=== PATIENT | male | born 1940 | race Caucasian/White ===

== ENCOUNTER 2017-11-04 20:50 | Outpatient (CLI) | payer MEDICARE ==
[~2017-11-04 20:50] MED LIST: CETI10TA20 PO; DICL50TA4 PO; HYDR-707 PO; HYDR12.5 PO; IBP800T PO; IRBE300T18 PO; IRBE300T9 PO; LEVO1CAP11 PO; MECL25TA3 PO; MONT10TA24 PO; NF-METANX PO; SCOP1PAT11 TD; TRM50T PO
== END 2017-11-05 06:24 | disposition home or self-care (01) ==
LOC: SLEEP 20:50
PROVIDERS: ATTEND Nurse Practitioner Family
DX: G47.33 Obstructive sleep apnea (adult) (pediatric) (principal); G47.61 Periodic limb movement disorder; Z91.19 Patient's noncompliance with other medical treatment and regimen
CPT/HCPCS: 95811

== ENCOUNTER → 2018-12-13 | Outpatient (CLI) | payer MEDICARE ==
[2018-12-13 14:33] LABS: ALANINE AMINOTRANSFERASE 8 U/L (0-55); ALBUMIN 3.8 GM/DL (3.2-4.5); ALKALINE PHOSPHATASE 76 U/L (40-136); BILIRUBIN,TOTAL 0.4 MG/DL (0.1-1.0); BUN/CREATININE RATIO 16; CALCIUM 9.3 MG/DL (8.5-10.1); CARBON DIOXIDE 30 MMOL/L (21-32); CHLORIDE 107 MMOL/L (98-107); CHOLESTEROL 149 MG/DL (< 200); CREATININE SERUM 0.86 MG/DL (0.60-1.30); GFR ESTIMATED > 60; GLUCOSE 87 MG/DL (70-105); HDL CHOLESTEROL 39 MG/DL (40-60); POTASSIUM 4.4 MMOL/L (3.6-5.0); SODIUM 138 MMOL/L (135-145); TOTAL PROTEIN 6.9 GM/DL (6.4-8.2); TRIGLYCERIDES 93 MG/DL (<150); VLDL CHOLESTEROL 19 MG/DL (5-40)
== END ==
LOC: LAB 14:01
PROVIDERS: ATTEND Internal Medicine Cardiovascular Disease
DX: I10 Essential (primary) hypertension (principal); I73.9 Peripheral vascular disease, unspecified; R06.09 Other forms of dyspnea; R07.9 Chest pain, unspecified
CPT/HCPCS: 36415; 80053; 80061; 93306

== ENCOUNTER → 2018-12-17 | Outpatient (CLI) | payer MEDICARE ==
[~2018-12-17] MED LIST changes: +CATHETER FLUSH 10 ML SYR IV PRN; +REGADENOSON 0.4 MG/5 ML SYR (LEXISCAN) IV ONE
[2018-12-17 09:03] VITALS: BP 128/71
[2018-12-17 09:11] VITALS: BP 128/71
[2018-12-17 09:12] VITALS: BP 144/68
--- NOTE | 2018-12-18 09:17 | STRESS TEST ---
DATE OF SERVICE: 12/17/2018 LEXISCAN MYOVIEW STRESS TEST REPORT REFERRING PHYSICIAN: Dr. Baez. Baseline heart rate is 42. Baseline blood pressure 129/70. Baseline EKG is sinus rhythm with no ischemic changes. In summary, the patient was injected with 10.88 mCi of technetium-99 Myoview and the resting images were obtained. Then, the patient started exercising with a baseline heart rate, blood pressure and EKG mentioned above. At minutes 2 and 50 seconds heart rate was 77. The patient was unable to perform any further. Test was terminated and converted to Lexiscan Myoview stress test. The patient received 0.4 mg of Lexiscan followed by 29.9 mCi of technetium-99 Myoview. Throughout the test, there were no EKG changes. The resting and stress images were reviewed and compared in the short axis, horizontal long axis, and vertical long axis views. Review of the images showed diaphragmatic attenuation with fixed defect involving the mid to apical inferior wall and inferolateral wall. SSS is 9, SDS 0. TID value 0.9. On the gated images, the left ventricle appeared to be in normal size. Inferior wall is luis normally. Calculated ejection fraction 65%. CONCLUSION: 1. Baseline sinus bradycardia and inability to exercise beyond 3 minutes with maximum heart rate 77 beats per minute. 2. Test was converted to Lexiscan and the patient tolerated Lexiscan well. 3. Diaphragmatic attenuation with fixed defect at the mid to apical inferior wall and inferolateral wall with no significant ischemia. 4. Normal left ventricular size with normal contractility. Inferior wall is luis normally. Calculated ejection fraction is 65%. Job ID: [id number] DocumentID: [id number] Dictated Date: 12/18/2018 07:45:21 Pattern Clerk Date: 12/18/2018 09:16:10 Dictated By: HELGA SANABRIA MD
== END ==
LOC: CARD 07:14
PROVIDERS: ATTEND Internal Medicine Cardiovascular Disease
DX: I25.10 Atherosclerotic heart disease of native coronary artery without angina pectoris (principal); I10 Essential (primary) hypertension; I73.9 Peripheral vascular disease, unspecified; R00.1 Bradycardia, unspecified
CPT/HCPCS: 78452; 93017

== ENCOUNTER 2019-01-09 06:49 | Day surgery (SDC) | payer MEDICARE ==
[~2019-01-09] VITALS: Ht 183 cm; Wt 99.0 kg
[2019-01-09] VITALS (10 sets, daily range): BP systolic 122–149; BP diastolic 72–88
[~2019-01-09 06:49] MED LIST changes: -CATHETER FLUSH 10 ML SYR IV PRN; -REGADENOSON 0.4 MG/5 ML SYR (LEXISCAN) IV ONE
[2019-01-09] MEDS ORDERED: LIDOCAINE 1% INJ 20 ML 20 ML VIAL ONE (06:58)
[2019-01-09] MEDS ORDERED: HEParin (CATH LAB) 2,000 ML IV ONE (06:58)
[2019-01-09] MEDS ORDERED: NS IV 1000 ML 1,000 ML ONE (06:58)
[2019-01-09] MEDS ORDERED: NS IV 1000 ML 1,000 ML IV SCH (07:00)
[2019-01-09 07:28] LABS: HEMOGLOBIN 14.2 G/DL (13.3-17.7); MEAN PLATELET VOLUME 10.7 FL (7.4-10.4); RED CELL DISTRIBUTION WIDTH 14.2 % (10.0-14.5); WHITE BLOOD COUNT 9.2 10^3/uL (4.3-11.0)
[2019-01-09] MEDS ORDERED: HYDR25TA4 PO (07:40)
[2019-01-09] MEDS ORDERED: C,E,1CAP PO (07:40)
[2019-01-09] MEDS ORDERED: IRBE300T18 PO (07:40)
[2019-01-09] MEDS ORDERED: TURM500C7 PO (07:40)
[2019-01-09] MEDS ORDERED: [UNRECOGNIZED DRUG - OTHER] PO (07:40)
[2019-01-09 07:46] LABS: PROTHROMBIN TIME PATIENT 13.9 SEC (12.2-14.7)
[2019-01-09] MEDS ORDERED: FLUT9.9S NS (07:47)
[2019-01-09] MEDS ORDERED: SODI30SP2 NS (07:47)
[2019-01-09] MEDS ORDERED: ASPI-983 PO (07:47)
[2019-01-09 07:54] LABS: ALANINE AMINOTRANSFERASE 11 U/L (0-55); ALBUMIN 4.1 GM/DL (3.2-4.5); ALKALINE PHOSPHATASE 82 U/L (40-136); BILIRUBIN,TOTAL 0.6 MG/DL (0.1-1.0); BUN/CREATININE RATIO 14; CALCIUM 9.7 MG/DL (8.5-10.1); CARBON DIOXIDE 26 MMOL/L (21-32); CHLORIDE 106 MMOL/L (98-107); CREATININE SERUM 0.86 MG/DL (0.60-1.30); GFR ESTIMATED > 60; GLUCOSE 85 MG/DL (70-105); POTASSIUM 3.9 MMOL/L (3.6-5.0); SODIUM 139 MMOL/L (135-145); TOTAL PROTEIN 7.3 GM/DL (6.4-8.2)
--- NOTE | 2019-01-09 07:55 | NUR ---
SPOKE WITH THE PT (HAS HIS BOTTLES) TO COMPLETE THE MED REC. PT WAS ABLE TO TELL HE HOW/WHEN HE TAKES ALL HIS HOME MEDS. THE FOLLOWING ARE FILL DATES LISTED ON HIS BOTTLES: 04-05-2018 HCTZ #30/30DS (PT INDICATES HE ONLY TAKES THIS PRN) 10-16-2018 IRBESARTAN #90/90DS 12-31-2018 CETIRIZINE #30/30DS OTC MEDS: FLONASE: UD PRN SALINE NASAL SPRAY: UD PRN ASPIRIN 81M DAILY OCUVITE: 1 DAILY VITACELL: 1 DAILY TURMERIC: 1 DAILY
--- NOTE | 2019-01-09 08:20 | Diagnostic Imaging Report ---
INDICATION: CHEST PAIN,SOB,HTN COMPARISON: 11/08/2015 FINDINGS: Single frontal view of the chest demonstrates normal heart size and pulmonary vascularity. The lungs show minimal left basilar atelectasis, but otherwise clear. No large pleural effusion or pneumothorax is seen. The visualized osseous structures show no acute abnormalities. IMPRESSION: 1. Minimal left basilar atelectasis. Dictated by: Dictated on workstation # [id number]
[2019-01-09] MEDS ORDERED: MIDAZOLAM 5 MG/5 ML (VERSED) VIAL ONE (09:04)
[2019-01-09] MEDS ORDERED: fentaNYL INJECTION 100 MCG/2 ML AMP ONE (09:04)
[2019-01-09] MEDS ORDERED: VERAPAMIL 5 MG/2 ML (CALAN) VIAL IV ONE (09:22)
[2019-01-09] MEDS ORDERED: NITRO DRIP 25000 MCG/D5W 250 ML IV ONE (09:22)
[2019-01-09] MEDS ORDERED: HEParin 1000 UNIT/ML (10ML VIAL) FOR BOLUS ONE (09:22)
--- NOTE | 2019-01-09 09:55 | Cardiac Procedure Note-CS/ASA ---
Pre-Procedure Note Pre-Op Procedure Note H&P Reviewed The H&P was reviewed, patient examined and no changes noted. Date H&P Reviewed: Jan 09, 2019 Time H&P Reviewed: 09:55 Conscious Sedation Pre-Proced Time 09:55 ASA Score 3 For ASA 3 and 4: Consider anesthesia and medical clearance. Also, for patients with a history of failed moderate sedation consider anesthesia. Airway Lungs Heart ASA score ASA 1: a normal healthy patient ASA 2: a patient with a mild systemic disease (mid diabetes, controlled hypertension, obesity x ASA 3: a patient with a severe systemic disease that limits activity (angina, COPD, prior Myocardial infarction) ASA 4: a patient with an incapacitating disease that is a constant threat to life (CHF, renal failure) ASA 5: a moribund patient not expected to survive 24 hrs. (ruptured aneurysm) ASA 6: a declared brain- patient whose organs are being harvested. For emergent operations, add the letter E after the classification Mallampati Classification Grade 3 Sedation Plan Analgesia, Amnesia, Plan communicated to team members, Discussed options with patient/fam, Discussed risks with patient/fam The patient is an appropriate candidate to undergo the planned procedure, sedation, and anesthesia. The patient immediately re-assessed prior to indication. HELGA SANABRIA MD Jan 09, 2019 09:55
[2019-01-09] MEDS ORDERED: ATOR10TA PO (09:57)
--- NOTE | 2019-01-09 09:57 | Discharge Inst-Post CATH ---
Discharge Inst-CATH/EP Problems Reviewed?: Yes Post Cardiac Cath/EP D/C Inst Follow Up/Plan Appointment with Dr. Garza's office in 2-4 weeks <b>CARDIAC CATH/EP PROCEDURE DISCHARGE INSTRUCTIONS</b> ACTIVITY * Go Home directly and rest. * Limit activity of the leg (or wrist if it was used) for 7 days including aerobics, swimming, jogging, bicycling, etc. * Restrict stair-climbing for 7 days if possible, if not, climb up with your non-cath leg, then bring together on the same step. * Avoid lifting, pushing, pulling or excessive movement of the affected extremity for 7 days. * Customary sexual activity may be resumed after 2 days-use caution not to use a position that strains or causes pain to the affected extremity. * No driving for 24 hours. * NO SMOKING. * Avoid straining for bowel movements for 7 days. * Gentle walking on level ground is allowed. * Returning to work will depend on the type of procedure and the results. Your doctor will discuss this with you. CALL YOUR DOCTOR FOR ANY OF THE FOLLOWING: *If bleeding from the puncture site occurs- Apply gentle pressure to site with clean cloth and call your doctor or EMS. * If a knot or lump forms under the skin, increases in size, or causes pain. * If bruising appears to be worsening or moving further down your leg instead of disappearing. * Temperature above 101 F. CARE OF YOUR GROIN INCISION; * Bruising or purple discoloration of the skin near the puncture site is common. * You may shower only, no bathtub bathing for 5 days. Be careful to avoid slipping as your leg may feel stiff. * If a closure device was used on your femoral artery, please see the attached guide regarding care of the device and your leg. * Leave dressing on FOR 24 hours. CARE OF YOUR WRIST INCISION; * Bruising or purple discoloration of the skin near the puncture site is common. * You may shower. * DO NOT submerge wrist. * Leave dressing on FOR 24 hours. HELGA GARZA MD Jan 09, 2019 09:57
--- NOTE | 2019-01-09 10:03 | Cardiac Cath Report ---
Cardiac Cath Report Physician (s)/Floor Coverings Salesperson (s) Physician HELGA SANABRIA MD Pre-Procedure Diagnosis Pre-Procedure Diagnosis: Chest pain coronary artery Post-Procedure Note Procedure Start Date: Jan 09, 2019 Name of Procedure: Left heart catheterization Left ventriculogram Aortic arch angiogram Findings/Procedure Note PROCEDURE NOTE: 78 years old gentleman with history of peripheral arterial disease, has been having chest pain, had an abnormal stress test and scheduled for cardiac catheterization possible PTCA. After explaining the procedure to the patient, all pros and cons were explained, all questions were answered. The patient signed the consent and then he was placed on the cardiac catheterization laboratory. Groin was prepped SL fashion local anesthesia was used. Sheath placed in the left radial artery. Haley right and left catheter were used to access the coronary system. Pigtail was used to access the left ventricular cavity. Left ventriculogram was done Aortic arch angiogram was done At the end of the procedure the sheath was removed. vascular band was used FINDINGS: Hemodynamics LV 96/5, end-diastolic pressure of 5 Aorta 90/52 mean of 69 ANATOMY: Left Main is free of obstructive disease Left Anterior Descending has moderate diffuse disease, 50-60 percent at the midportion Left Circumflex has diffuse ectasia with severe stenosis proximally involving the ostium of the first obtuse marginal branch, the circumflex artery is codominant artery Right Coronory Artery has diffuse ectasia with severe stenosis distally LV Gram was done showing normal left ventricular size with normal contractility estimated ejection fraction 60 percent Aorta evaluation showed prominent aortic arch, no dissection, origin of the innominate artery, left carotid artery and left subclavian artery appeared normal CONCLUSION: 1. Diffuse coronary ectasia with severe stenosis at the proximal circumflex artery that is a dominant artery involving the ostium of the obtuse marginal branch 2. Ectasia in the right coronary artery with severe stenosis distally 3. Mild ectasia in the LAD with moderate disease, 5060 percent stenosis at the midportion 4. Normal left ventricular size and systolic function estimated ejection fraction 60 percent 5. Prominent aortic arch, no dissection or aneurysm, normal great vessels of the neck DISCUSSION AND RECOMMENDATION: Patient will be considered high risk for percutaneous intervention, I will refer him to [facility] for evaluation possible high risk intervention versus bypass surgery Anesthesia Type: Conscious Sedation Estimated blood loss (mL): 15 ml Contrast Amount: 72 ml Total Radiation Dose: 717 mGy Post-Procedure Diagnosis Post-operative diagnosis: Chest pain Coronary artery disease Peripheral arterial disease Hypertension Hyperlipidemia HELGA SANABRIA MD Jan 09, 2019 10:03
[2019-01-09] MEDS ORDERED: NITROGLYCERIN 0.4 MG SL TABS BTL 25'S SL ONE (11:17)
[2019-01-09] MEDS ORDERED: NITROGLYCERIN 0.4 MG SL TABS BTL 25'S SL PRN (11:30)
[2019-01-09] MEDS ORDERED: RELABEL FOR HOME USE MC SCH (12:00)
[2019-01-09] MEDS ORDERED: NITROGLYCERIN 0.4 MG SL TABS BTL 25'S SL SCH (12:15)
--- NOTE | 2019-01-09 13:40 | NUR ---
SENT PATIENT HOME WITH BOTTLE OF NITRO THAT WAS RELABELED BY PHARMACY PER DR. ELLY NETTLES.
== END 2019-01-09 13:40 | disposition home or self-care (01) ==
LOC: CATH 06:49 → SDC 10:20 → CATH 13:40
PROVIDERS: ATTEND Internal Medicine Cardiovascular Disease
DX: I25.10 Atherosclerotic heart disease of native coronary artery without angina pectoris (principal); I73.9 Peripheral vascular disease, unspecified; I10 Essential (primary) hypertension; E78.5 Hyperlipidemia, unspecified; M19.91 Primary osteoarthritis, unspecified site; J30.2 Other seasonal allergic rhinitis; I65.23 Occlusion and stenosis of bilateral carotid arteries; G47.33 Obstructive sleep apnea (adult) (pediatric); Z96.653 Presence of artificial knee joint, bilateral; Z79.899 Other long term (current) drug therapy; Z87.891 Personal history of nicotine dependence
CPT/HCPCS: 36221; 36415; 71045; 80053; 85027; 85610; 85730; 87081; 93005; 93458

== ENCOUNTER → 2019-03-21 | Outpatient (CLI) | payer MEDICARE ==
[~2019-03-21] MED LIST changes: +ASPI-983 PO; +ATOR10TA PO; +C,E,1CAP PO; +CATHETER FLUSH 10 ML SYR IV PRN; +FLUT9.9S NS; +HOLD METFORMIN - RECEIVED CONTRAST 20 ML VIAL IV SCH; +HYDR25TA4 PO; +IOHEXOL 350 MG/ML 100 ML (OMNIPAQUE 350) VIAL IV ONE; +NS 100 ML (IVPB) BAG IV ONE; +SODI30SP2 NS; +TURM500C7 PO; +[UNRECOGNIZED DRUG - OTHER] PO
[2019-03-21 08:56] LABS: BUN/CREATININE RATIO 16; CREATININE SERUM 0.82 MG/DL (0.60-1.30); GFR ESTIMATED > 60
--- NOTE | 2019-03-21 10:03 | Diagnostic Imaging Report ---
PROCEDURE: CT chest with contrast only. TECHNIQUE: Multiple contiguous axial images were obtained through the chest after administration of intravenous contrast. Auto Exposure Controls were utilized during the CT exam to meet ALARA standards for radiation dose reduction. INDICATION: Allergic rhinitis. COMPARISON: No prior chest CT studies are available for comparison. FINDINGS: Nonspecific mildly prominent right axillary lymph nodes are identified. Lymph node in the right axilla measures 3.0 x 0.9 cm. Left axilla is unremarkable. No mediastinal or hilar lymphadenopathy is identified. No pericardial or pleural fluid is detected. There are coronary arterial calcifications present. Pulmonary parenchymal evaluation demonstrates some mild subsegmental atelectasis or scarring in the lingula and left lower lobe. Otherwise the lungs appear to be clear. No mass is identified. Upper abdomen shows tiny low densities in the liver which are too small to characterize but most likely represent cysts. There appears to be a stone in the gallbladder. No adrenal mass is identified. IMPRESSION: 1. Lingular and left lower lobe subsegmental atelectasis or scarring. 2. Prominent right axillary lymph nodes, etiology indeterminate. No other significant abnormality is detected. Dictated by: Dictated on workstation # [id number]
== END ==
LOC: RAD 08:22
PROVIDERS: ATTEND Nurse Practitioner Family
DX: J30.9 Allergic rhinitis, unspecified (principal); R06.00 Dyspnea, unspecified; R07.9 Chest pain, unspecified; G47.30 Sleep apnea, unspecified
CPT/HCPCS: 36415; 71260; 82565; 84520

== ENCOUNTER → 2019-03-22 | Outpatient (CLI) | payer MEDICARE ==
[~2019-03-22] MED LIST changes: -CATHETER FLUSH 10 ML SYR IV PRN; -HOLD METFORMIN - RECEIVED CONTRAST 20 ML VIAL IV SCH; -IOHEXOL 350 MG/ML 100 ML (OMNIPAQUE 350) VIAL IV ONE; -NS 100 ML (IVPB) BAG IV ONE; +RT-ALBUTEROL SULF 2.5 MG/3 ML PRE-MIX VIAL INH ONE; +RT-ALBUTEROL SULF 2.5 MG/3 ML PRE-MIX VIAL ONE
== END ==
LOC: RT 13:27
PROVIDERS: ATTEND Nurse Practitioner Family
DX: J30.9 Allergic rhinitis, unspecified (principal); R06.00 Dyspnea, unspecified; R07.9 Chest pain, unspecified; G47.30 Sleep apnea, unspecified
CPT/HCPCS: 94060; 94726; 94729

== ENCOUNTER 2019-05-15 08:56 | Outpatient (RCR) | payer MEDICARE ==
[~2019-05-15 08:56] MED LIST changes: -RT-ALBUTEROL SULF 2.5 MG/3 ML PRE-MIX VIAL INH ONE; -RT-ALBUTEROL SULF 2.5 MG/3 ML PRE-MIX VIAL ONE
== END 2019-05-19 | disposition home or self-care (01) ==
LOC: CR 08:56
PROVIDERS: ATTEND Internal Medicine Cardiovascular Disease
DX: Z48.812 Encounter for surgical aftercare following surgery on the circulatory system (principal); Z95.5 Presence of coronary angioplasty implant and graft
CPT/HCPCS: 93798

== ENCOUNTER 2019-05-24 08:59 | Outpatient (RCR) | payer MEDICARE ==
[~2019-05-24 08:59] MED LIST changes: -CETI10TA20 PO; +CETI10TA21 PO; +IRBE300T17 PO; -IRBE300T18 PO; -MONT10TA24 PO; +MONT10TA26 PO
== END 2019-08-18 | disposition home or self-care (01) ==
LOC: CR 08:59
PROVIDERS: ATTEND Internal Medicine Cardiovascular Disease
DX: Z48.812 Encounter for surgical aftercare following surgery on the circulatory system (principal); Z95.5 Presence of coronary angioplasty implant and graft
CPT/HCPCS: 93798

== ENCOUNTER 2020-07-04 04:27 | Observation (INO) | payer MEDICARE ==
[~2020-07-04] VITALS: Ht 182.8 cm; Wt 92.9 kg
[~2020-07-04 04:27] MED LIST changes: +ASPI-1238 PO; -ASPI-983 PO; -CETI10TA21 PO; +CETI10TA49 PO; -MONT10TA26 PO; +MONT10TA32 PO
--- NOTE | 2020-07-04 05:03 | ED General ---
General Stated Complaint: JOHNS,EARS & NECK PAIN Source of Information: Patient (SVEN MARC DO) History of Present Illness Date Seen by Provider: Jul 04, 2020 Time Seen by Provider: 04:48 Initial Comments PT ARRIVES VIA POV FROM HOME C/O HEADACHE C/O BILATERAL EAR PAIN C/O BILATERAL JAW PAIN C/O POSTERIOR NECK PAIN SYMPTOMS BEGAN AROUND 2000 TONIGHT NO CHEST PAIN NO SHORTNESS OF BREATH NO PALPITATIONS NO DIZZINESS NO SYNCOPE NO VISION OR HEARING CHANGES NO NAUSEA/VOMITING NO PARESTHESIAS OR MOTOR DEFICITS NO FEVER/SWEATS/CHILLS NO URI/SINUS SYMPTOMS NO COUGH OR RECENT ILLNESS TOOK TYLENOL AT 0100 CHECKED HIS BP JUST PRIOR TO ARRIVAL AND WAS 149/70, SO TOOK HYDROCHLOROTHIAZIDE BECAUSE HE THOUGHT HIS BLOOD PRESSURE WAS HIGH PT IS ON PLAVIX, MEDICATION FOR BLOOD PRESSURE AND CHOLESTEROL--NO CHANGES IN MEDICATIONS OR MISSED DOSES OF MEDICATIONS HAD STENT IN HEART PLACED IN 2018 NO HISTORY OF STROKE OR NEUROLOGICAL PROBLEMS HAS HAD CERVICAL SPINE FRACTURE AND SURGERY HAD SECOND COVID-19 VACCINATION 05/25/20 PCP: DR. VAZ CUPOLA TAPPER HELPER: DR. SANABRIA (SVEN MARC DO) Allergies and Home Medications Allergies Coded Allergies: amoxicillin (Unverified Allergy, Mild, 01/16/09) celecoxib (Unverified Allergy, Mild, 06/06/09) Sulfa (Sulfonamide Antibiotics) (Unverified Allergy, Unknown, 01/09/19) Uncoded Allergies: BANDAID ADHESIVE (Allergy, Mild, 06/06/09) Home Medications Apixaban 5 Mg Tablet, 5 MG PO BID Prescribed by: PATRICE DONATO on 07/04/20 1446 Atorvastatin Calcium 10 Mg Tablet, 10 MG PO DAILY Prescribed by: HELGA SANABRIA on 01/09/19 0957 C,E,Zinc,Copper 11/Oledn5b/Lut 1 Each Capsule, 1 EACH PO DAILY, (Reported) Cetirizine HCl 10 Mg Tablet, 10 MG PO DAILY PRN for ALLERGY SYMPTOMS, (Reported) Clopidogrel Bisulfate 75 Mg Tablet, 75 MG PO DAILY, (Reported) Fluticasone Propionate 9.9 Ml [place].susp, 1 SPRAY NS BID PRN for CONGESTION, (Reported) 1 SPRAY EACH NARE DAILY Hydrochlorothiazide 25 Mg Tablet, 25 MG PO DAILY PRN for EDEMA, (Reported) Irbesartan 300 Mg Tablet, 300 MG PO 1800, (Reported) Sodium Chloride 30 Ml [place], 1 SPRAY NS PRN PRN for CONGESTION, (Reported) Turmeric/Turmeric Root Extract 1 Each Capsule, 1 EACH PO DAILY, (Reported) Patient Home Medication List Home Medication List Reviewed: Yes (NIK SANDOVAL MD) Review of Systems Review of Systems Constitutional: no symptoms reported; No chills, No diaphoresis, No dizziness, No fever, No malaise, No weakness EENTM: see HPI, ear pain; No ear discharge, No hearing loss, No blurred vision, No double vision, No eye pain, No vision loss, No mouth pain, No nose congestion, No throat pain, No throat swelling Respiratory: no symptoms reported; No cough, No short of breath Cardiovascular: no symptoms reported; No chest pain, No edema, No palpitations, No syncope Gastrointestinal: no symptoms reported; No abdominal pain, No diarrhea, No nausea, No vomiting Genitourinary: no symptoms reported Musculoskeletal: see HPI, neck pain Skin: no symptoms reported Psychiatric/Neurological: See HPI, Headache; Denies Numbness, Denies Paresthesia, Denies Seizure, Denies Tingling, Denies Tremors, Denies Weakness Hematologic/Lymphatic: No Symptoms Reported Immunological/Allergic: no symptoms reported (SVEN MARC DO) Past Aoqyuye-Wdofvl-Hmovyy Hx Past Med/Social Hx: Reviewed and Corrections made (SVEN MARC DO) Patient Social History Alcohol Use: Denies Use Drug of Choice: DENIES Smoking Status: Former Smoker Type Used: Cigarettes, Smokeless Tobacco 2nd Hand Smoke Exposure: No Recent Hopitalizations: No (SVEN MARC DO) Immunizations Up To Date Tetanus Booster (TDap): More than 5yrs (SVEN MARC DO) Seasonal Allergies Seasonal Allergies: Yes (SVEN MARC DO) Past Medical History Surgeries: Yes Abdominal, Cardiac, Coronary Stent, Eye Surgery, Orthopedic Respiratory: Yes Sleep Apnea Currently Using CPAP: No Currently Using BIPAP: No Cardiac: Yes (HX OF ATRIAL PREMATURE COMPLEXES) Coronary Artery Disease, High Cholesterol, Hypertension Neurological: No Reproductive Disorders: No Sexually Transmitted Disease: No Genitourinary: No Gastrointestinal: No Musculoskeletal: Yes (C-SPINE FX-S/P SURGERY;BACK SURGERY;WRIST FUSION;BILAT TKR;BILAT ELBOW;) Amputee, Arthritis, Back Injury, Chronic Back Pain Endocrine: Yes Diabetes, Non-Insulin dep HEENT: Yes Cataract Cancer: No Psychosocial: No Integumentary: No Blood Disorders: No Adverse Reaction/Blood Tranf: No (SVEN MARC DO) Family Medical History Hypertension SOCIAL HISTORY: -ETOH--DENIES USE -DRUGS--DENIES USE -SMOKED 1 PPD, FROM AGE 17 TO AGE 29 PAST SURGICAL HISTORY: -CARDIAC CATH WITH STENT 01/2019 -BILATERAL KNEE ARTHROSCOPIES -BILATERAL KNEE REPLACEMENTS-LEFT 10/1997; RIGHT 09/2000 -CERVICAL SPINE FRACTURE WITH SURGICAL REPAIR 2008 -UMBILICAL HERNIA REPAIR 2004 -LEFT 5TH FINGER AMPUTATION 1999 -BILATERAL ELBOW REPLACEMENTS 1998 AT -CATARACT SURGERY 1997 -LUMBAR LAMINECTOMY 1997 -LAPAROSCOPIC BILATERAL INGUINAL HERNIA REPAIRS 1992 -LEFT WRIST FUSION 1990 (SVEN MARC DO) Physical Exam Vital Signs Vital Signs - First Documented 07/04/20 04:45 Temp 36.2 Pulse 69 Resp 18 B/P (MAP) 147/92 (110) (NIK SANDOVAL MD) Vital Signs Capillary Refill : (SVEN MARC DO) Height, Weight, BMI Height: 6'0" Weight: 220lbs. oz. 99.663387id; 29.56 BMI Method:Stated General Appearance: No Apparent Distress, WD/WN HEENT: PERRL/EOMI, TMs Normal, Normal ENT Inspection, Pharynx Normal, Moist Mucous Membranes, Other (NO DENTAL TENDERNESS) Neck: No Carotid Bruit; Other (MILD DIFFUSE POSTERIOR NECK TENDERNESS. LIMITED FLEXION--STATES IS NORMAL DUE TO PRIOR C-SPINE FRACTURE WITH SURGERY) Respiratory: Chest Non Tender, Normal Breath Sounds, No Accessory Muscle Use, No Respiratory Distress Cardiovascular: No Edema, No JVD, No Murmur, Normal Peripheral Pulses, Irregularly Irregular Gastrointestinal: Non Tender, Soft Back: No CVA Tenderness, No Vertebral Tenderness Extremity: Normal Capillary Refill, Normal Inspection, Normal Range of Motion, Non Tender, No Calf Tenderness, No Pedal Edema Neurologic/Psychiatric: Alert, Oriented x3, No Motor/Sensory Deficits, Normal Mood/Affect, director of media II-XII Norm as Tested; No Abnormal Cerebellar Tests Skin: Normal Color, Warm/Dry (SVEN MARC DO) Progress/Results/Core Measures Suspected Sepsis SIRS Temperature: Pulse: Respiratory Rate: Laboratory Tests 07/04/20 04:58: White Blood Count 9.6 Blood Pressure / Mean: Laboratory Tests 07/04/20 04:58: Creatinine 0.73, INR Comment 1.0, Platelet Count 254, Total Bilirubin 0.7 (SVEN MARC DO) Results/Orders Lab Results Laboratory Tests Test 07/04/20 04:58 07/04/20 05:54 07/04/20 07:40 Range/Units White Blood Count 9.6 4.3-11.0 10^3/uL Red Blood Count 4.30 4.30-5.52 10^6/uL Hemoglobin 12.3 L 13.3-17.7 g/dL Hematocrit 38 L 40-54 % Mean Corpuscular Volume 89 80-99 fL Mean Corpuscular Hemoglobin 29 25-34 pg Mean Corpuscular Hemoglobin Concent 32 32-36 g/dL Red Cell Distribution Width 13.4 10.0-14.5 % Platelet Count 254 130-400 10^3/uL Mean Platelet Volume 10.1 9.0-12.2 fL Immature Granulocyte % (Auto) 0 % Neutrophils (%) (Auto) 68 42-75 % Lymphocytes (%) (Auto) 21 12-44 % Monocytes (%) (Auto) 9 0-12 % Eosinophils (%) (Auto) 2 0-10 % Basophils (%) (Auto) 1 0-10 % Neutrophils # (Auto) 6.5 1.8-7.8 10^3/uL Lymphocytes # (Auto) 2.0 1.0-4.0 10^3/uL Monocytes # (Auto) 0.9 0.0-1.0 10^3/uL Eosinophils # (Auto) 0.1 0.0-0.3 10^3/uL Basophils # (Auto) 0.1 0.0-0.1 10^3/uL Immature Granulocyte # (Auto) 0.0 0.0-0.1 10^3/uL Prothrombin Time 14.1 12.2-14.7 SEC INR Comment 1.0 0.8-1.4 Activated Partial Thromboplast Time 40 H 24-35 SEC Sodium Level 139 135-145 MMOL/L Potassium Level 4.1 3.6-5.0 MMOL/L Chloride Level 107 98-107 MMOL/L Carbon Dioxide Level 21 21-32 MMOL/L Anion Gap 11 5-14 MMOL/L Blood Urea Nitrogen 11 7-18 MG/DL Creatinine 0.73 0.60-1.30 MG/DL Estimat Glomerular Filtration Rate > 60 BUN/Creatinine Ratio 15 Glucose Level 98 70-105 MG/DL Calcium Level 9.3 8.5-10.1 MG/DL Corrected Calcium 9.5 8.5-10.1 MG/DL Magnesium Level 2.0 1.6-2.4 MG/DL Total Bilirubin 0.7 0.1-1.0 MG/DL Aspartate Amino Transf (AST/SGOT) 12 5-34 U/L Alanine Aminotransferase (ALT/SGPT) 12 0-55 U/L Alkaline Phosphatase 89 40-136 U/L Total Creatine Kinase 39 30-200 U/L Creatine Kinase MB 0.5 <6.6 NG/ML Myoglobin 40.6 10.0-92.0 NG/ML Troponin I < 0.028 < 0.028 <0.028 NG/ML B-Type Natriuretic Peptide 86.9 <100.0 PG/ML Total Protein 6.9 6.4-8.2 GM/DL Albumin 3.7 3.2-4.5 GM/DL TSH [place]ison Testing 2.01 0.35-4.94 UIU/ML Urine Color YELLOW Urine Clarity CLEAR Urine pH 6.5 5-9 Urine Specific [place] 1.015 L 1.016-1.022 Urine Protein NEGATIVE NEGATIVE Urine Glucose (UA) NEGATIVE NEGATIVE Urine Ketones NEGATIVE NEGATIVE Urine Nitrite NEGATIVE NEGATIVE Urine Bilirubin NEGATIVE NEGATIVE Urine Urobilinogen 0.2 < = 1.0 MG/DL Urine Leukocyte Esterase NEGATIVE NEGATIVE Urine RBC (Auto) 1+ H NEGATIVE Urine RBC RARE /HPF Urine WBC NONE /HPF Urine Squamous Epithelial Cells RARE /HPF Urine Crystals NONE /LPF Urine Bacteria NEGATIVE /HPF Urine Casts NONE /LPF Urine Mucus NEGATIVE /LPF Urine Culture Indicated NO (NIK SANDOVAL MD) My Orders Orders - NIK SANDOVAL MD Troponin I (07/04/20 07:45) Ekg Tracing (07/04/20 07:52) (NIK SANDOVAL MD) Vital Signs/I&O 07/04/20 04:45 Temp 36.2 Pulse 69 Resp 18 B/P (MAP) 147/92 (110) (NIK SANDOVAL MD) Vital Signs/I&O Capillary Refill : (SVEN MARC DO) Progress Note : Progress Note PT QUESTIONED ABOUT HISTORY OF IRREGULAR HEART BEAT-HE STATES HE IS UNAWARE OF PRIOR IRREGULAR HEART BEAT. PT DOES NOT HAVE SENSATION OF PALPITATIONS, ETC. GIVEN FENTANYL FOR PAIN 0600--CARE TURNED OVER TO DR. SANDOVAL, TEST RESULTS PENDING (SVEN MARC DO) Progress Note #1: Time: 06:19 Progress Note Care of this gentleman was assumed from Dr. Marc at 06:00. Work-up was essentially unremarkable to this point. CT report is still pending. Patient describes pain around the anterior neck, jaw, ears, and chin last night. He now only has pain in the occipital area. This is not tender to the touch. He denies any neck pain or tenderness at this time. He has no pain around the anterior neck, jaw, or ears at this time. Patient was examined and found to have normal tympanic membranes and ear canals. He has multiple fillings in the mouth but no obvious areas of inflammation or swelling. Heart is irregular consistent with his atrial flutter. Lungs are clear. He complains of no neurologic deficits or paresthesias. He describes no difficulty walking or moving. Lab Engineer strength is normal and equal. He denies any chest pain. Prior cardiac catheterization report was reviewed. Patient has notable coronary matheus ry disease. I am suspicious that his jaw and neck pain he experienced in the night is anginal in nature, triggered by his new atrial flutter. After CT report is reviewed I will discuss the situation with cardiology. Progress Note #2: Time: 07:44 Progress Note I discussed the case with Dr. Brannon. He recommends repeating a troponin before definitively committing to an admission plan or disposition. Troponin is being processed now. I communicated the plan to the patient. During that time he stated he had some slight left lower chest pain which he is accustomed to having intermittently for years. This intermittent pain is not new to him but he was not experiencing it yet this morning until just prior to my most recent conversation. Chest was not tender to palpation. We are repeating an EKG. Progress Note #3: Time: 07:54 Progress Note Patient now states the chest discomfort is gone. He was asked to notify staff if it returns so that we may obtain an EKG at that time. Progress Note #4: Time: 08:59 Progress Note Repeat troponin was negative. Patient did not report any further chest pain. (NIK SANDOVAL MD) ECG Initial ECG Impression Date: Jul 04, 2020 Initial ECG Impression Time: 05:01 Initial ECG Rate: 68 Initial ECG Rhythm: A Fib/Flutter (AFLUTTER WITH 4:1 AV BLOCK; LAFB) Initial ECG Comparisson: Changed (FROM 2019--WAS NSR ON PREVIOUS EKG'S) (SVEN MARC DO) Diagnostic Imaging Comments CXR-- CT HEAD/CERVICAL SPINE Reviewed: Reviewed by Me (SVEN MARC DO) Diagonstic Imaging: Xray Plain Films/CT/US/NM/MRI: chest Comments Chest x-ray viewed by me. Report not yet available. No acute abnormalities appreciated. Diagonstic Imaging: CT Plain Films/CT/US/NM/MRI: c-spine, head Comments CT head and cervical spine reviewed by me and stat rad report reviewed. No acute injuries or other pathologies were identified. (NIK SANDOVAL MD) Departure Communication (Admissions) Time/Spoke to Admitting Phy: 08:25 Dr. Patrice Donato Time/Spoke to Consulting Phy: 07:48 Dr. Brannon (NIK SANDOVAL MD) Impression Primary Impression: NEW DIAGNOSIS ATRIAL FLUTTER Additional Impression: Bradycardia Disposition: 09 ADMITTED INPATIENT Condition: Stable Admissions Decision to Admit Reason: Admit from ER (General) Decision to Admit/Date: Jul 04, 2020 Time/Decision to Admit Time: 07:45 (NIK SANDOVAL MD) Departure-Patient Inst. Referrals: CLEMENTE VAZ MD (PCP/Family) Primary Care Physician Scripts Apixaban (Eliquis) 5 Mg Tablet 5 MG PO BID, #60 TAB Prov: PATRICE DONATO MD 07/04/20 SVEN MARC DO Jul 04, 2020 05:03 NIK SANDOVAL MD Jul 04, 2020 06:24
[2020-07-04 05:07] LABS: BASOPHILS # (AUTO) 0.1 10^3/uL (0.0-0.1); BASOPHILS % (AUTO) 1 % (0-10); EOSINOPHILS # (AUTO) 0.1 10^3/uL (0.0-0.3); EOSINOPHILS % (AUTO) 2 % (0-10); HEMATOCRIT 38 % (40-54); HEMOGLOBIN 12.3 g/dL (13.3-17.7); LYMPHOCYTES % (AUTO) 21 % (12-44); MEAN CORPUSCULAR HEMOGLOBIN 29 pg (25-34); MEAN CORPUSCULAR HGB CONC 32 g/dL (32-36); MEAN CORPUSCULAR VOLUME 89 fL (80-99); MEAN PLATELET VOLUME 10.1 fL (9.0-12.2); MONOCYTES # (AUTO) 0.9 10^3/uL (0.0-1.0); MONOCYTES % (AUTO) 9 % (0-12); NEUTROPHILS # (AUTO) 6.5 10^3/uL (1.8-7.8); NEUTROPHILS % (AUTO) 68 % (42-75); PLATELET COUNT 254 10^3/uL (130-400); WHITE BLOOD COUNT 9.6 10^3/uL (4.3-11.0)
[2020-07-04 05:31] LABS: ALANINE AMINOTRANSFERASE 12 U/L (0-55); ALBUMIN 3.7 GM/DL (3.2-4.5); ALKALINE PHOSPHATASE 89 U/L (40-136); BILIRUBIN,TOTAL 0.7 MG/DL (0.1-1.0); BUN/CREATININE RATIO 15; CALCIUM 9.3 MG/DL (8.5-10.1); CARBON DIOXIDE 21 MMOL/L (21-32); CHLORIDE 107 MMOL/L (98-107); CREATININE SERUM 0.73 MG/DL (0.60-1.30); GFR ESTIMATED > 60; GLUCOSE 98 MG/DL (70-105); POTASSIUM 4.1 MMOL/L (3.6-5.0); SODIUM 139 MMOL/L (135-145); TOTAL PROTEIN 6.9 GM/DL (6.4-8.2)
[2020-07-04 05:32] LABS: CREATINE KINASE 39 U/L (30-200)
[2020-07-04 05:34] LABS: PROTHROMBIN TIME PATIENT 14.1 SEC (12.2-14.7)
[2020-07-04 05:52] LABS: CREATINE KINASE MB 0.5 NG/ML (<6.6); TSH (THYROID ANALYZER) 2.01 UIU/ML (0.35-4.94)
[2020-07-04 05:59] LABS: BILIRUBIN,URINE NEGATIVE (NEGATIVE); CLARITY,URINE CLEAR; COLOR,URINE YELLOW; GLUCOSE, URINE (UA) NEGATIVE (NEGATIVE); KETONES,URINE NEGATIVE (NEGATIVE); LEUKOCYTE ESTERASE ,URINE NEGATIVE (NEGATIVE); NITRITE,URINE NEGATIVE (NEGATIVE); PH,URINE 6.5 (5-9); PROTEIN,URINE NEGATIVE (NEGATIVE)
[2020-07-04] MEDS ORDERED: fentaNYL INJ 100 MCG/2 ML AMP IVP STA (06:01)
[2020-07-04 06:08] LABS: RBC,URINE RARE /HPF
[2020-07-04 06:09] LABS: BACTERIA,URINE NEGATIVE /HPF; SQUAMOUS EPITHELIAL CELL,UR RARE /HPF
--- NOTE | 2020-07-04 08:10 | Diagnostic Imaging Report ---
HISTORY: Atrial flutter COMPARISON: 01/09/2019 TECHNIQUE: Frontal view of the chest FINDINGS: Lung volumes are normal. Minimal opacity in the left lung base likely represents chronic scarring and appears stable since 2019. No new consolidation is seen. The cardiac silhouette is normal in size. There is no pleural effusion or pneumothorax. IMPRESSION:. Chronic scarring in the left lung base with no acute pulmonary abnormality seen. Dictated by: Dictated on workstation # [id number]
--- NOTE | 2020-07-04 08:15 | Diagnostic Imaging Report ---
EXAMINATION: CT head and CT cervical spine without contrast. TECHNIQUE: Multiple contiguous axial images were obtained through the brain and cervical spine without the use of intravenous contrast. Sagittal and coronal reformations through the cervical spine were then performed. All CT scans use one or more of the following dose optimizing techniques: automated exposure control, MA and/or KvP adjustment based on a patient size and exam type, or iterative reconstruction. HISTORY: Trauma COMPARISON: 11/08/2015 FINDINGS: The delvalle-white matter differentiation is normal. No mass effect or midline shift. The ventricles are normal in size and configuration. Basilar cisterns are patent. There are no intra- or extra-axial fluid collections. There is no intracranial hemorrhage. The orbits are normal. Paranasal sinuses are normal. Mastoid air cells are clear. No soft tissue abnormality is seen. No osseus lesions or fractures are seen. There is mild anterolisthesis of C6 on C7 likely related to facet disease. No fracture is seen. Vertebral body heights are normal. The craniocervical junction is normal. There is moderate degenerative disease in the cervical spine. There is fusion of bilateral C2-C5 facets. There is a screw through the anterior C2 vertebral body and to the dens which partially protrudes into the submucosal portion of the oropharynx. There is no spinal canal stenosis. No soft tissue abnormality is seen in the neck. Limited views of the superior thorax are normal. IMPRESSION: 1. No acute intracranial abnormality. 2. No cervical spine fracture. There is no significant disagreement with the preliminary report. Dictated by: Dictated on workstation # [id number]
[2020-07-04] MEDS ORDERED: APIXABAN 5 MG (ELIQUIS) TABLET PO ONE (08:45)
[2020-07-04 09:15] VITALS: BP 171/95
[2020-07-04] MEDS ORDERED: ASPIRIN E.C. 81 MG (ECOTRIN) TAB PO SCH (09:35)
[2020-07-04] MEDS ORDERED: C,E,1CAP PO (09:41)
[2020-07-04] MEDS ORDERED: CLOP75TA69 PO (09:43)
[2020-07-04] MEDS ORDERED: NITROGLYCERIN 0.4 MG SL TABS BTL 25'S SL PRN (09:45)
[2020-07-04] MEDS ORDERED: ONDANSETRON 4 MG/2 ML (SDV) Z0FRAN IV PRN (09:45)
[2020-07-04 10:00] VITALS: BP_SYST 122; BP_SYST 164; BP_DIAS 91; BP_DIAS 95
--- NOTE | 2020-07-04 10:25 | History & Physical ---
History of Present Illness History of Present Illness Reason for visit/HPI 80 yo male admitted for arrhythmia. Patient has had chest discomfort on/off for years. Troponin negative x 2. Patient's headache is better after getting fentanyl. He feels this headache is different as he does not get headaches very often. He would like to be discharged home but also would like to know what is causing his headache. Nonsmoker. Has history of neck surgery. EKG showing atrial flutter. Cardiology consulted for recommendations. Date of Admission Jul 04, 2020 at 08:31 Date Seen by a Provider: Jul 04, 2020 Time Seen by a Provider: 11:00 I consulted on this patient on 07/04/20 10:22 Attending Physician Patrice Donato MD Admitting Physician Malou Baez MD Consult Allergies and Home Medications Allergies Coded Allergies: amoxicillin (Unverified Allergy, Mild, 01/16/09) celecoxib (Unverified Allergy, Mild, 06/06/09) Sulfa (Sulfonamide Antibiotics) (Unverified Allergy, Unknown, 01/09/19) Uncoded Allergies: BANDAID ADHESIVE (Allergy, Mild, 06/06/09) Home Medications Apixaban 5 Mg Tablet, 5 MG PO BID Prescribed by: PATRICE DONATO on 07/04/20 1446 Aspirin 81 Mg Tablet.dr, 81 MG PO DAILY, (Reported) Atorvastatin Calcium 10 Mg Tablet, 10 MG PO DAILY Prescribed by: HELGA GARZA on 01/09/19 0957 C,E,Zinc,Copper 11/Jgwso0g/Lut 1 Each Capsule, 1 EACH PO DAILY, (Reported) Cetirizine HCl 10 Mg Tablet, 10 MG PO DAILY PRN for ALLERGY SYMPTOMS, (Reported) Clopidogrel Bisulfate 75 Mg Tablet, 75 MG PO DAILY, (Reported) Fluticasone Propionate 9.9 Ml [place].susp, 1 SPRAY NS BID PRN for CONGESTION, (Reported) 1 SPRAY EACH NARE DAILY Hydrochlorothiazide 25 Mg Tablet, 25 MG PO DAILY PRN for EDEMA, (Reported) Irbesartan 300 Mg Tablet, 300 MG PO 1800, (Reported) Sodium Chloride 30 Ml [place], 1 SPRAY NS PRN PRN for CONGESTION, (Reported) Turmeric/Turmeric Root Extract 1 Each Capsule, 1 EACH PO DAILY, (Reported) Patient Home Medication List Home Medication List Reviewed: Yes Past Ptlnfoo-Vgsvsf-Nlboyz Hx Patient Social History Drug of Choice: DENIES Smoking Status: Former Smoker 2nd Hand Smoke Exposure: No Recent Hopitalizations: No Have you traveled recently?: No Alcohol Use?: No Pt feels they are or have been: No Immunizations Up To Date Tetanus Booster (TDap): More than 5yrs Seasonal Allergies Seasonal Allergies: Yes Surgeries Yes Abdominal, Cardiac, Coronary Stent, Eye Surgery, Orthopedic Respiratory Yes Currently Using CPAP: No Currently Using BIPAP: No Cardiovascular Yes (HX OF ATRIAL PREMATURE COMPLEXES) Coronary Artery Disease, High Cholesterol, Hypertension Neurological No Reproductive System Hx Reproductive Disorders: No Sexually Transmitted Disease: No Genitourinary No Gastrointestinal No Musculoskeletal Yes (C-SPINE FX-S/P SURGERY;BACK SURGERY;WRIST FUSION;BILAT TKR;BILAT ELBOW;) Amputee, Arthritis, Back Injury, Chronic Back Pain Endocrine History of Endocrine Disorders: Yes Endocrine Disorders: Diabetes, Non-Insulin dep HEENT History of HEENT Disorders: Yes HEENT Disorders: Cataract Cancer No Psychosocial History of Psychiatric Problem: No Integumentary History of Skin or Integumenta: No Blood Transfusions History of Blood Disorders: No Adverse Reaction to a Blood Tr: No Family Medical History Significant Family History: Hypertension Other Significan Family Hx: SOCIAL HISTORY: -ETOH--DENIES USE -DRUGS--DENIES USE -SMOKED 1 PPD, FROM AGE 17 TO AGE 29 PAST SURGICAL HISTORY: -CARDIAC CATH WITH STENT 01/2019 -BILATERAL KNEE ARTHROSCOPIES -BILATERAL KNEE REPLACEMENTS-LEFT 10/1997; RIGHT 09/2000 -CERVICAL SPINE FRACTURE WITH SURGICAL REPAIR 2008 -UMBILICAL HERNIA REPAIR 2004 -LEFT 5TH FINGER AMPUTATION 1999 -BILATERAL ELBOW REPLACEMENTS 1998 AT -CATARACT SURGERY 1997 -LUMBAR LAMINECTOMY 1997 -LAPAROSCOPIC BILATERAL INGUINAL HERNIA REPAIRS 1992 -LEFT WRIST FUSION 1990 Review of Systems Review of Systems General: No Chills HEENT: Head Aches; No Visual Changes Pulmonary: No Dyspnea, No Cough Cardiovascular: Chest Pain, Palpitations Gastrointestinal: No: Nausea, Vomiting, Abdominal Pain Genitourinary: No Dysuria Musculoskeletal: neck pain; No: shoulder pain Neurological: No: Weakness, Confusion Physical Exam Vital Signs Vital Signs - First Documented 07/04/20 07/04/20 07/04/20 04:45 09:07 09:15 Temp 36.2 Pulse 69 Resp 18 B/P (MAP) 147/92 (110) Pulse Ox 98 O2 Delivery Room Air O2 Flow Rate 2.00 Capillary Refill : Less Than 3 Seconds Height, Weight, BMI Height: 6'0" Weight: 220lbs. oz. 99.839274kk; 27.80 BMI Method:Stated General Appearance: No Apparent Distress HEENT: PERRL/EOMI Neck: Non Tender, Supple Respiratory: Chest Non Tender, Lungs Clear, Normal Breath Sounds, No Accessory Muscle Use; No Decreased Breath Sounds Cardiovascular: Other (irregular rhythm, normal rate) Gastrointestinal: Non Tender, Soft Back: Normal Inspection, No CVA Tenderness Extremity: Non Tender, No Calf Tenderness, Pedal Edema Neurologic/Psychiatric: Alert, Oriented x3 Skin: Warm/Dry Assessment/Plan Assessment/Plan Admission Dx atrial flutter headache Admission Status: Observation Assessment and Plan 80 yo M admitted 07/04/20- started on eliquis. Plan to monitor today. -will bring his blood pressure down and see if his headache persists. He does have history of cervical surgeries with a screw in C2. Dr. Brannon consulted for recommendations. Patient no longer has chest pain and he is deemed stable for discharge to home; follow up with Dr. aGrza within 1 week. Stop aspirin. Continue plavix and start Eliquis. Discuss with Dr. Garza nuclear stress test. Problems: (1) HTN (hypertension) Qualifiers: Qualified Codes: I10 - Essential (primary) hypertension (2) Chest pain Qualifiers: Qualified Codes: R07.89 - Other chest pain (3) Headache Qualifiers: (4) Atrial flutter Qualifiers: Qualified Codes: I48.3 - Typical atrial flutter PATRICE DONATO MD Jul 04, 2020 10:25
[2020-07-04 11:00] VITALS: BP 161/97
[2020-07-04 12:00] VITALS: BP 150/77
[2020-07-04] MEDS ORDERED: HYDROCHLOROTHIAZIDE 25 MG (HCTZ) TAB PO PRN (13:00)
[2020-07-04] MEDS ORDERED: LOSARTAN 100 MG (COZAAR) TABLET PO ONE (13:00)
--- NOTE | 2020-07-04 14:25 | Consultation-Cardiology ---
HPI-Cardiology Cardiology Consultation: Date of Consultation 07/04/20 Date of Admission Attending Physician Patrice Rivero MD Admitting Physician Malou Baez MD Consulting Physician Gala BRANNON MD HPI: Time Seen by a Provider: 13:00 Chief Complaint: Atrial flutter This is a 80-year-old gentleman who follows with Dr. Garza. He has history of coronary artery disease, PCI with stent in February 2019. He presents with headache, jaw pain which started last evening. He denies any chest pain, shortness of breath, palpitations or other cardiac complaints. Elevated blood pressure. Patient is on Plavix. Denies active smoking. Pertinent family history is negative. Review of Systems-Cardiology Review of Systems Constitutional: As described under HPI; No As described under HPI, No no symptoms reported, No chills, No fever, No lightheadedness Eyes: No As described under HPI, No no symptoms reported, No blindness, No blurred vision, No contact lenses, No drainage, No decreased acuity, No foreign body sensation, No pain, No vision change Ears/Nose/Throat: No As described under HPI, No no symptoms reported, No ch ronic hearing loss, No ear discharge, No ear pain, No nasal drainage, No ulcerations; other (Bilateral jaw pain) Respiratory: No no symptoms reported; As described under HPI; No As described under HPI, No cough, No orthopnea, No shortness of breath, No SOB with excertion Cardiovascular: No no symptoms reported; As described under HPI; No As described under HPI, No chest pain, No edema, No irregular heart rate, No lightheadedness, No palpitations Gastrointestinal: No no symptoms reported, No As described under HPI, No abdomen distended, No abdominal pain, No blood streaked bowels, No constipation, No diarrhea, No nausea, No vomiting, No stool coloration changes Genitourinary: No As described under HPI, No burning, No dysuria, No discharge, No frequency, No flank pain, No hematuria, No urgency Skin: No rash, No skin related problems, No ulcerations Psychiatric/Neurological: No anxiety, No depression, No seizure, No focal weakness, No syncope Hematologic: No bleeding abnormalities ACF-Hzbgru-Momqwc Hx Patient Social History Smoking Status: Former Smoker 2nd Hand Smoke Exposure: No Have you traveled recently?: No Alcohol Use?: No Pt feels they are or have been: No Immunizations Up To Date Tetanus Booster (TDap): More than 5yrs Past Medical History PMH As described under Assessment. Allergies and Home Medications Allergies Coded Allergies: amoxicillin (Unverified Allergy, Mild, 01/16/09) celecoxib (Unverified Allergy, Mild, 06/06/09) Sulfa (Sulfonamide Antibiotics) (Unverified Allergy, Unknown, 01/09/19) Uncoded Allergies: BANDAID ADHESIVE (Allergy, Mild, 06/06/09) Home Medications Aspirin 81 Mg Tablet.dr, 81 MG PO DAILY, (Reported) Atorvastatin Calcium 10 Mg Tablet, 10 MG PO DAILY Prescribed by: HELGA GARZA on 01/09/19 0957 C,E,Zinc,Copper 11/Fxqom0x/Lut 1 Each Capsule, 1 EACH PO DAILY, (Reported) Cetirizine HCl 10 Mg Tablet, 10 MG PO DAILY PRN for ALLERGY SYMPTOMS, (Reported) Clopidogrel Bisulfate 75 Mg Tablet, 75 MG PO DAILY, (Reported) Fluticasone Propionate 9.9 Ml [place].susp, 1 SPRAY NS BID PRN for CONGESTION, (Reported) 1 SPRAY EACH NARE DAILY Hydrochlorothiazide 25 Mg Tablet, 25 MG PO DAILY PRN for EDEMA, (Reported) Irbesartan 300 Mg Tablet, 300 MG PO 1800, (Reported) Sodium Chloride 30 Ml [place], 1 SPRAY NS PRN PRN for CONGESTION, (Reported) Turmeric/Turmeric Root Extract 1 Each Capsule, 1 EACH PO DAILY, (Reported) Patient Home Medication List Home Medication List Reviewed: Yes Physical Exam-Cardiology Physical Exam Vital Signs/I&O 07/04/20 07/04/20 07/04/20 07/04/20 04:45 09:07 09:15 09:26 Temp 36.2 36.2 Pulse 69 67 69 Resp 18 16 B/P (MAP) 147/92 (110) 130/91 171/95 (120) Pulse Ox 98 O2 Delivery Room Air Nasal Cannula O2 Flow Rate 2.00 07/04/20 07/04/20 07/04/20 07/04/20 09:52 09:54 10:00 10:18 Pulse 68 67 Resp B/P (MAP) 164/95 (118) Pulse Ox 98 97 O2 Delivery Nasal Cannula Nasal Cannula Room Air O2 Flow Rate 2.00 2.00 407/04/20 07/04/20 11:00 11:32 12:42 Temp 36.6 Pulse 68 68 B/P (MAP) 161/97 (118) Pulse Ox 98 O2 Delivery Room Air Capillary Refill : Less Than 3 Seconds Constitutional: appears stated age, AAO x 3; No apparent distress; well- developed, well-nourished HEENT: PERRL; No discharge; hearing is well preserved, oral hygience is good; No ulceration, No xanthelasmas are seen Neck: No carotid bruit; carotid pulses are 2 + bilaterally Respiratory: chest is bilaterally symmetric, lungs clear to auscultation Cardiovascular: irregularly irregular, S1 and S2 Gastrointestinal: soft, audible bowel sounds; No spleenomegaly Rectal: deferred Extremities: No clubbing, No cyanosis; no lower extremity edema bilateral; No significant edema Neurologic/Psychiatric: no motor/sensory deficits, alert, normal mood/affect, oriented x 3, power is 5/5 both on sides Skin: normal color, warm/dry; No rash, No ulcerations Data Review Labs Laboratory Tests 07/04/20 04:58: White Blood Count 9.6, Red Blood Count 4.30, Hemoglobin 12.3L, Hematocrit 38L, Mean Corpuscular Volume 89, Mean Corpuscular Hemoglobin 29, Mean Corpuscular Hemoglobin Concent 32, Red Cell Distribution Width 13.4, Platelet Count 254, Mean Platelet Volume 10.1, Immature Granulocyte % (Auto) 0, Neutrophils (%) (Auto) 68, Lymphocytes (%) (Auto) 21, Monocytes (%) (Auto) 9, Eosinophils (%) (Auto) 2, Basophils (%) (Auto) 1, Neutrophils # (Auto) 6.5, Lymphocytes # (Auto) 2.0, Monocytes # (Auto) 0.9, Eosinophils # (Auto) 0.1, Basophils # (Auto) 0.1, Immature Granulocyte # (Auto) 0.0, Prothrombin Time 14.1, INR Comment 1.0, Activated Partial Thromboplast Time 40H, Sodium Level 139, Potassium Level 4.1, Chloride Level 107, Carbon Dioxide Level 21, Anion Gap 11, Blood Urea Nitrogen 11, Creatinine 0.73, Estimat Glomerular Filtration Rate > 60, BUN/Creatinine Ratio 15, Glucose Level 98, Calcium Level 9.3, Corrected Calcium 9.5, Magnesium Level 2.0, Total Bilirubin 0.7, Aspartate Amino Transf (AST/SGOT) 12, Alanine Aminotransferase (ALT/SGPT) 12, Alkaline Phosphatase 89, Total Creatine Kinase 39, Creatine Kinase MB 0.5, Myoglobin 40.6, Troponin I < 0.028, B-Type Natriuretic Peptide 86.9, Total Protein 6.9, Albumin 3.7, TSH Crisp Testing 2.01 07/04/20 05:54: Urine Color YELLOW, Urine Clarity CLEAR, Urine pH 6.5, Urine Specific [place] 1.015L, Urine Protein NEGATIVE, Urine Glucose (UA) NEGATIVE, Urine Ketones NEGATIVE, Urine Nitrite NEGATIVE, Urine Bilirubin NEGATIVE, Urine Urobilinogen 0.2, Urine Leukocyte Esterase NEGATIVE, Urine RBC (Auto) 1+H, Urine RBC RARE, Urine WBC NONE, Urine Squamous Epithelial Cells RARE, Urine Crystals NONE, Urine Bacteria NEGATIVE, Urine Casts NONE, Urine Mucus NEGATIVE, Urine Culture Indicat ed NO 07/04/20 07:40: Troponin I < 0.028 ECG Impression ECG Initial ECG Rhythm: A Fib/Flutter Comment Typical atrial flutter A/P-Cardiology Assessment/Admission Diagnosis Bilateral neck/jaw pain, Typical atrial flutter, CAD/PCI, Hypertension, Hyperlipidemia Plan Bilateral neck/jaw pain, due to history of PCI, he was admitted for observation. Serial troponin are negative. EKG did not demonstrate any significant ST deviation. Okay to discharge to follow-up with Dr. Garza on Monday for possible nuclear stress test. Typical atrial flutter, well controlled rate. Discussed briefly with the patient. Started on Eliquis. Follow-up with Dr. Garza. CAD/PCI, we started the patient on Eliquis. I will DC aspirin and continue Plavix alone. Hypertension, had elevated blood pressure, likely causing the headache. Much better controlled now. Hyperlipidemia, continue high-dose statin therapy. Thank you for your consultation. Please call me if you have any questions. Ravinder Brannon MD, FACP, FACC, FSCAI, FHRS, CCDS Interventional Cardiology Cardiac Electrophysiology Vascular Medicine and Endovascular Interventions Gala BRANNON MD Jul 04, 2020 14:25
[2020-07-04] MEDS ORDERED: APIX5TAB PO (14:46)
--- NOTE | 2020-07-04 14:49 | Discharge Summary ---
Discharge Summary Hospital Course Problems/Dx: (1) HTN (hypertension) Qualifiers: Qualified Codes: I10 - Essential (primary) hypertension (2) Chest pain Status: Resolved Qualifiers: Qualified Codes: R07.89 - Other chest pain (3) Headache Qualifiers: (4) Atrial flutter Qualifiers: Qualified Codes: I48.3 - Typical atrial flutter Hospital Course Date of Admission: Jul 04, 2020 at 08:31 Admission Diagnosis : Family Physician/Provider: Malou Baez MD Date of Discharge: 07/04/20 Discharge Diagnosis: [ ] Hospital Course: See HPI - Labs and Pending Lab Test: Laboratory Tests 07/04/20 04:58: White Blood Count 9.6, Red Blood Count 4.30, Hemoglobin 12.3L, Hematocrit 38L, Mean Corpuscular Volume 89, Mean Corpuscular Hemoglobin 29, Mean Corpuscular Hemoglobin Concent 32, Red Cell Distribution Width 13.4, Platelet Count 254, Mean Platelet Volume 10.1, Immature Granulocyte % (Auto) 0, Neutrophils (%) (Auto) 68, Lymphocytes (%) (Auto) 21, Monocytes (%) (Auto) 9, Eosinophils (%) (Auto) 2, Basophils (%) (Auto) 1, Neutrophils # (Auto) 6.5, Lymphocytes # (Auto) 2.0, Monocytes # (Auto) 0.9, Eosinophils # (Auto) 0.1, Basophils # (Auto) 0.1, Immature Granulocyte # (Auto) 0.0, Prothrombin Time 14.1, INR Comment 1.0, Activated Partial Thromboplast Time 40H, Sodium Level 139, Potassium Level 4.1, Chloride Level 107, Carbon Dioxide Level 21, Anion Gap 11, Blood Urea Nitrogen 11, Creatinine 0.73, Estimat Glomerular Filtration Rate > 60, BUN/Creatinine Ratio 15, Glucose Level 98, Calcium Level 9.3, Corrected Calcium 9.5, Magnesium Level 2.0, Total Bilirubin 0.7, Aspartate Amino Transf (AST/SGOT) 12, Alanine Aminotransferase (ALT/SGPT) 12, Alkaline Phosphatase 89, Total Creatine Kinase 39, Creatine Kinase MB 0.5, Myoglobin 40.6, Troponin I < 0.028, B-Type Natriuretic Peptide 86.9, Total Protein 6.9, Albumin 3.7, TSH [employer] Testing 2.01 07/04/20 05:54: Urine Color YELLOW, Urine Clarity CLEAR, Urine pH 6.5, Urine Specific [place] 1.015L, Urine Protein NEGATIVE, Urine Glucose (UA) NEGATIVE, Urine Ketones NEGATIVE, Urine Nitrite NEGATIVE, Urine Bilirubin NEGATIVE, Urine Urobilinogen 0.2, Urine Leukocyte Esterase NEGATIVE, Urine RBC (Auto) 1+H, Urine RBC RARE, Urine WBC NONE, Urine Squamous Epithelial Cells RARE, Urine Crystals NONE, Urine Bacteria NEGATIVE, Urine Casts NONE, Urine Mucus NEGATIVE, Urine Culture Indicated NO 07/04/20 07:40: Troponin I < 0.028 Home Meds Active Eliquis (Apixaban) 5 Mg Tablet 5 Mg PO BID Lipitor (Atorvastatin Calcium) 10 Mg Tablet 10 Mg PO DAILY Reported Plavix (Clopidogrel Bisulfate) 75 Mg Tablet 75 Mg PO DAILY Ocuvite Adult 50 Plus Softgel (C,E,Zinc,Copper 11/Eclev1t/Lut) 1 Each Capsule 1 Each PO Saline Nasal [place] (Sodium Chloride) 30 Ml [place] 1 [place] NS PRN PRN Flonase Allergy Relief (Fluticasone Propionate) 9.9 Ml [place].susp 1 [place] NS BID PRN 1 SPRAY EACH NARE DAILY Aspirin EC (Aspirin) 81 Mg Tablet.dr 81 Mg PO DAILY Irbesartan 300 Mg Tablet 300 Mg PO 1800 Ocuvite Adult 50 Plus Softgel (C,E,Zinc,Copper 11/Tqrnx6s/Lut) 1 Each Capsule 1 Each PO DAILY Turmeric 450-50 mg Capsule (Turmeric/Turmeric Root Extract) 1 Each Capsule 1 Each PO DAILY Hydrochlorothiazide 25 Mg Tablet 25 Mg PO DAILY PRN Zyrtec (Cetirizine HCl) 10 Mg Tablet 10 Mg PO DAILY PRN Assessment/Pt Instructions stop aspirin continue plavix you were started on Eliquis follow up with Dr. Garza next week to consider a nuclear stress test and discuss Eliquis. Hospital should have a coupon for the first Eliquis prescription. Discharge Planning: <30 minutes discharge planning Discharge Instructions Discharge Diet: No Restrictions Activity as Tolerated: Yes Discharge Physical Examination Vital Signs Vital Signs Date Time Temp Pulse Resp B/P (MAP) Pulse Ox O2 Delivery O2 Flow Rate FiO2 07/04/20 12:42 68 07/04/20 12:00 34 150/77 (101) 92 Room Air 07/04/20 11:32 36.6 07/04/20 10:00 2.00 General Appearance: No Apparent Distress Allergies: Coded Allergies: amoxicillin (Unverified Allergy, Mild, 01/16/09) celecoxib (Unverified Allergy, Mild, 06/06/09) Sulfa (Sulfonamide Antibiotics) (Unverified Allergy, Unknown, 01/09/19) Uncoded Allergies: BANDAID ADHESIVE (Allergy, Mild, 06/06/09) Discharge Summary Date of Admission Jul 04, 2020 at 08:31 Date of Discharge Discharge Diagnosis (1) HTN (hypertension) Qualifiers: Qualified Codes: I10 - Essential (primary) hypertension (2) Chest pain Status: Resolved Qualifiers: Qualified Codes: R07.89 - Other chest pain (3) Headache Qualifiers: (4) Atrial flutter Qualifiers: Qualified Codes: I48.3 - Typical atrial flutter CHRISTOPHER DONATO MD Jul 04, 2020 14:49
[2020-07-04 15:27] VITALS: BP 150/77
[2020-07-04] MEDS ORDERED: APIXABAN 5 MG (ELIQUIS) TABLET PO SCH (21:00)
[2020-07-05] MEDS ORDERED: LOSARTAN 100 MG (COZAAR) TABLET PO SCH (09:00)
== END 2020-07-04 15:26 | disposition home or self-care (01) ==
LOC: EDUNIT# 04:27 → ER 04:29 → ICU 08:31
PROVIDERS: ADMIT Family Medicine; ATTEND Family Medicine
DX: I48.3 Typical atrial flutter (principal); I10 Essential (primary) hypertension; R07.89 Other chest pain; R51.9 Headache, unspecified; E78.00 Pure hypercholesterolemia, unspecified; I25.10 Atherosclerotic heart disease of native coronary artery without angina pectoris; G89.29 Other chronic pain; M54.9 Dorsalgia, unspecified; E11.36 Type 2 diabetes mellitus with diabetic cataract; Z79.01 Long term (current) use of anticoagulants; Z79.899 Other long term (current) drug therapy; Z79.82 Long term (current) use of aspirin; Z88.1 Allergy status to other antibiotic agents; Z88.2 Allergy status to sulfonamides; Z88.5 Allergy status to narcotic agent; Z91.048 Other nonmedicinal substance allergy status; Z87.891 Personal history of nicotine dependence; Z95.5 Presence of coronary angioplasty implant and graft
CPT/HCPCS: 70450; 71045; 72125; 80053; 81000; 82550; 82553; 83735; 83874; 83880; 84443; 84484; 85025; 85610; 85730; 93005; 93041; 99284; G0378; 36415

== ENCOUNTER 2020-07-08 09:30 | Day surgery (SDC) | payer MEDICARE ==
[~2020-07-08] VITALS: Ht 182.9 cm; Wt 90.9 kg
[2020-07-08] VITALS (15 sets, daily range): BP systolic 113–162; BP diastolic 63–85
[2020-07-08 07:58] LABS: HEMOGLOBIN 12.4 g/dL (13.3-17.7); MEAN PLATELET VOLUME 9.9 fL (9.0-12.2); WHITE BLOOD COUNT 7.9 10^3/uL (4.3-11.0)
[2020-07-08 08:16] LABS: INR 1.1 (0.8-1.4); PROTHROMBIN TIME PATIENT 14.5 SEC (12.2-14.7)
[2020-07-08 08:19] LABS: ALANINE AMINOTRANSFERASE 15 U/L (0-55); ALBUMIN 3.7 GM/DL (3.2-4.5); ALKALINE PHOSPHATASE 79 U/L (40-136); BILIRUBIN,TOTAL 0.7 MG/DL (0.1-1.0); BUN/CREATININE RATIO 20; CALCIUM 9.2 MG/DL (8.5-10.1); CARBON DIOXIDE 21 MMOL/L (21-32); CHLORIDE 107 MMOL/L (98-107); CHOLESTEROL 117 MG/DL (< 200); CREATININE SERUM 0.84 MG/DL (0.60-1.30); GFR ESTIMATED > 60; GLUCOSE 89 MG/DL (70-105); HDL CHOLESTEROL 40 MG/DL (40-60); POTASSIUM 4.2 MMOL/L (3.6-5.0); SODIUM 139 MMOL/L (135-145); TRIGLYCERIDES 52 MG/DL (<150); VLDL CHOLESTEROL 10 MG/DL (5-40)
[~2020-07-08 09:30] MED LIST changes: +APIX5TAB PO; +CLOP75TA69 PO; +LIDOCAINE 2% VISCOUS 15 ML UDC ONE; +MIDAZOLAM 2 MG/2 ML (VERSED) VIAL ONE; +NS IV 1000 ML 1,000 ML IV SCH; +NS IV 1000 ML 1,000 ML ONE; +proPOfol 200 MG/20 ML (DIPRIVAN) VIAL IV ONE
[2020-07-08] MEDS ORDERED: LIDOCAINE 2% VISCOUS 15 ML UDC PO ONE (10:15)
--- NOTE | 2020-07-08 10:26 | Cardioversion ---
Cardioversion PROCEDURE PHYSICIAN: Helga Garza DATE OF PROCEDURE: 07/08/20 DIRECT EXTERNAL ELECTRICAL CARDIOVERSION: Indications: Atrial flutter Preoperative diagnoses: Atrial flutter Postoperative diagnosis: Sinus rhythm, Successful Electrical Cardioversion Anesthesia: By Anesthesia services Complications: None Specimen: None Contrast: 0 Flouroscopy: none Procedure Details: The patient was brought the odd job laborer after informed consent was taken, all the risks and complications were explained including the risk of stroke. Electrical cardioversion was carried out with anesthesia support with propofol. 200 joules of synchronized shock was delivered through external patches which promptly restored sinus rhythm. The patient tolerated the procedure well. Conclusions: Successful DC cardioversion in terminating atrial flutter Final Diagnosis: Paroxysmal atrial flutter Palpitation Hypertension Hyperlipidemia HELGA GARZA MD Jul 08, 2020 10:26 am
--- NOTE | 2020-07-08 10:26 | Cardiac Procedure Note-CS/ASA ---
Pre-Procedure Note Pre-Op Procedure Note H&P Reviewed The H&P was reviewed, patient examined and no changes noted. Date H&P Reviewed: Jul 08, 2020 Time H&P Reviewed: 09:00 Conscious Sedation Pre-Proced Time 09:00 ASA Score 3 For ASA 3 and 4: Consider anesthesia and medical clearance. Also, for patients with a history of failed moderate sedation consider anesthesia. Airway Lungs Heart ASA score ASA 1: a normal healthy patient ASA 2: a patient with a mild systemic disease (mid diabetes, controlled hypertension, obesity x ASA 3: a patient with a severe systemic disease that limits activity (angina, COPD, prior Myocardial infarction) ASA 4: a patient with an incapacitating disease that is a constant threat to life (CHF, renal failure) ASA 5: a moribund patient not expected to survive 24 hrs. (ruptured aneurysm) ASA 6: a declared brain- patient whose organs are being harvested. For emergent operations, add the letter E after the classification Mallampati Classification Grade 3 Sedation Plan Analgesia, Amnesia, Plan communicated to team members, Discussed options with patient/fam, Discussed risks with patient/fam The patient is an appropriate candidate to undergo the planned procedure, sedation, and anesthesia. The patient immediately re-assessed prior to indication. HELGA SANABRIA MD Jul 08, 2020 10:26 am
[2020-07-08] MEDS ORDERED: AMIO200T6 PO (10:28)
--- NOTE | 2020-07-08 10:28 | Discharge Inst-Post CATH ---
Discharge Inst-CATH/EP Problems Reviewed?: Yes Post Cardiac Cath/EP D/C Inst Follow Up/Plan Appointment with Dr. Arellano's office in 2 to 4 weeks <b>CARDIAC CATH/EP PROCEDURE DISCHARGE INSTRUCTIONS</b> ACTIVITY * Go Home directly and rest. * Limit activity of the leg (or wrist if it was used) for 7 days including aerobics, swimming, jogging, bicycling, etc. * Restrict stair-climbing for 7 days if possible, if not, climb up with your non -cath leg, then bring together on the same step. * Avoid lifting, pushing, pulling or excessive movement of the affected extr emity for 7 days. * Customary sexual activity may be resumed after 2 days-use caution not to use a position that strains or causes pain to the affected extremity. * No driving for 24 hours. * NO SMOKING. * Avoid straining for bowel movements for 7 days. * Gentle walking on level ground is allowed. * Returning to work will depend on the type of procedure and the results. Your doctor will discuss this with you. CALL YOUR DOCTOR FOR ANY OF THE FOLLOWING: *If bleeding from the puncture site occurs- Apply gentle pressure to site with clean cloth and call your doctor or EMS. * If a knot or lump forms under the skin, increases in size, or causes pain. * If bruising appears to be worsening or moving further down your leg instead of disappearing. * Temperature above 101 F. CARE OF YOUR GROIN INCISION; * Bruising or purple discoloration of the skin near the puncture site is common. * You may shower only, no bathtub bathing for 5 days. Be careful to avoid slipping as your leg may feel stiff. * If a closure device was used on your femoral artery, please see the attached guide regarding care of the device and your leg. * Leave dressing on FOR 24 hours. CARE OF YOUR WRIST INCISION; * Bruising or purple discoloration of the skin near the puncture site is common. * You may shower. * DO NOT submerge wrist. * Leave dressing on FOR 24 hours. HELGA SANABRIA MD Jul 08, 2020 10:28 am
[2020-07-08] MEDS ORDERED: AMIODARONE INJECTION 150 MG in D5W 100 ML IVPB 100 ML IV NR (11:00)
--- NOTE | 2020-07-08 11:57 | Anesthesia-General Post-Op ---
MAC Patient Condition Mental Status/LOC: Same as Preop Cardiovascular: Satisfactory Nausea/Vomiting: Absent Respiratory: Satisfactory Pain: Controlled Complications: Absent Post Op Complications Complications None Follow Up Care/Instructions Patient Instructions None needed. Anesthesiology Discharge Order Discharge Order Patient is doing well, no complaints, stable vital signs, no apparent adverse anesthesia problems. No complications reported per nursing. KAREY ENAMORADO CRNA Jul 08, 2020 11:57
== END 2020-07-08 12:38 | disposition home or self-care (01) ==
LOC: SDC 11:11 → CATH 12:38
PROVIDERS: ATTEND Internal Medicine Cardiovascular Disease
DX: I48.92 Unspecified atrial flutter (principal); I10 Essential (primary) hypertension; I25.10 Atherosclerotic heart disease of native coronary artery without angina pectoris; E11.9 Type 2 diabetes mellitus without complications; E78.2 Mixed hyperlipidemia; M19.90 Unspecified osteoarthritis, unspecified site; J30.9 Allergic rhinitis, unspecified; I73.9 Peripheral vascular disease, unspecified; E66.9 Obesity, unspecified; Z68.27 Body mass index [BMI] 27.0-27.9, adult; Z79.899 Other long term (current) drug therapy; Z79.01 Long term (current) use of anticoagulants; Z88.2 Allergy status to sulfonamides; Z88.1 Allergy status to other antibiotic agents; Z91.048 Other nonmedicinal substance allergy status; Z88.5 Allergy status to narcotic agent; Z87.891 Personal history of nicotine dependence; Z20.822 Contact with and (suspected) exposure to COVID-19
CPT/HCPCS: 80053; 80061; 85027; 85610; 85730; 87081; 92960; 93005; 93312; U0002; 36415; 87635

== ENCOUNTER → 2020-08-05 | Day surgery (SDC) | payer MEDICARE ==
[~2020-08-05] VITALS: Ht 182 cm; Wt 90.9 kg
[~2020-08-05] MED LIST changes: +AMIO200T6 PO; +LIDOCAINE 1% INJ 20 ML 20 ML VIAL ONE; -LIDOCAINE 2% VISCOUS 15 ML UDC ONE; -MIDAZOLAM 2 MG/2 ML (VERSED) VIAL ONE; -NS IV 1000 ML 1,000 ML IV SCH; -NS IV 1000 ML 1,000 ML ONE; -proPOfol 200 MG/20 ML (DIPRIVAN) VIAL IV ONE
[2020-08-05 10:44] VITALS: BP 146/67
--- NOTE | 2020-08-05 11:32 | Implantation of Loop Monitor ---
Implant of Loop Monitior IMPLANTATION OF LOOP MONITOR REPORT DATE OF PROCEDURE: 08/05/20 PREOP DIAGNOSIS: Paroxysmal atrial fibrillation POSTOP DIAGNOSIS: Paroxysmal atrial fibrillation PROCEDURE DETAILS: The patient is a 80 male with history of paroxysmal atrial fibrillation requiring long-term surveillance. Therefore implantable loop recorder was discussed and agreed with the patient. Informed consent was taken. All risks and complications were discussed at length. The patient was draped and prepped in the usual sterile fashion. Local anesthesia was lidocaine, which was given in the substernal area close to the 4th intercostal space. Loop monitor Full [employer]rottle [employer]art [employer] with serial number [id number] was implanted according to the protocol. Steri- Strips were placed at the end of the procedure. There were no complications and the patient tolerated the procedure well. The device was interrogated with a voltage of. ANESTHESIA: Local anesthesia with lidocaine. COMPLICATIONS: None CONTRAST/FLUOROSCOPY: None CONCLUSION: Successful implantation of loop monitor with no complication FINAL DIAGNOSIS: Paroxysmal atrial fibrillation Palpitation Hypertension HELGA SANABRIA MD August 05, 2020 11:32 am
== END ==
LOC: CATH 10:04
PROVIDERS: ATTEND Internal Medicine Cardiovascular Disease
DX: I48.0 Paroxysmal atrial fibrillation (principal); I10 Essential (primary) hypertension; E78.2 Mixed hyperlipidemia; I48.92 Unspecified atrial flutter; M19.90 Unspecified osteoarthritis, unspecified site; I25.10 Atherosclerotic heart disease of native coronary artery without angina pectoris; I73.9 Peripheral vascular disease, unspecified; E66.9 Obesity, unspecified; Z68.27 Body mass index [BMI] 27.0-27.9, adult; Z79.899 Other long term (current) drug therapy; Z79.01 Long term (current) use of anticoagulants; Z87.891 Personal history of nicotine dependence
CPT/HCPCS: 33285; C1764

== ENCOUNTER → 2020-09-23 | Outpatient (CLI) | payer MEDICARE ==
[~2020-09-23] MED LIST changes: +CATHETER FLUSH 10 ML SYR IV PRN; -LIDOCAINE 1% INJ 20 ML 20 ML VIAL ONE; +REGADENOSON 0.4 MG/5 ML SYR (LEXISCAN) IV ONE
[2020-09-23 08:56] VITALS: BP 170/80
--- NOTE | 2020-09-23 17:16 | STRESS TEST ---
DATE OF SERVICE: 09/23/2020 LEXISCAN MYOVIEW STRESS TEST REPORT REFERRING PHYSICIAN: Dr. Baez. Baseline heart rate is 43. Baseline blood pressure 170/80. Baseline EKG is sinus rhythm with no ischemic changes. In summary, the patient was injected with 10.93 mCi of technetium-99 Myoview and the resting images were obtained. Then, the patient received 0.4 mg of Lexiscan followed by 30.5 mCi of technetium-99 Myoview. Review of the images showed good radiotracer uptake with diaphragmatic attenuation, there is mild decreased uptake involving the inferior wall, which is fixed. No significant ischemia was noted. SSS is 7, SDS 2, TID value 1.02. Gated images showed normal left ventricle with EF 67%. CONCLUSION: 1. The patient tolerated Lexiscan well. 2. Diaphragmatic attenuation with mild decreased uptake involving the mid to apical inferior wall with subtle reversibility, no significant ischemia was noted. 3. Normal left ventricular size with normal contractility. Calculated ejection fraction 67%. Job ID: [id number] DocumentID: [id number] Dictated Date: 09/23/2020 15:51:10 Canvassing Manager Date: 09/23/2020 17:15:37 Dictated By: HELGA SANABRIA MD
== END ==
LOC: CARD 07:45
PROVIDERS: ATTEND Internal Medicine Cardiovascular Disease
DX: R07.9 Chest pain, unspecified (principal)
CPT/HCPCS: 78452; 93017; A9502

== ENCOUNTER → 2020-12-21 | Outpatient (CLI) | payer MEDICARE ==
[~2020-12-21] MED LIST changes: -CATHETER FLUSH 10 ML SYR IV PRN; -REGADENOSON 0.4 MG/5 ML SYR (LEXISCAN) IV ONE
--- NOTE | 2020-12-21 13:26 | Diagnostic Imaging Report ---
Indication: Fracture. 4 views were obtained FINDINGS: There are postsurgical changes of a right elbow arthroplasty. There has been a fracture of the right ulna which is somewhat angulated. Otherwise moderate severe degenerative changes about the elbow. No other fracture or dislocation. 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 Dictated by: Dictated on workstation # [id number]
--- NOTE | 2020-12-21 13:27 | Diagnostic Imaging Report ---
INDICATION: Pain after fall. FINDINGS: 2 views right humerus were obtained. The humeral component of the right elbow arthroplasty appears to be suggesting marked loosening or underlying fracture. This predominantly involving the distal aspect of the prosthesis. The proximal humerus is intact. Shoulder is unremarkable. IMPRESSION: Findings suspect for loosening and/or fracture of the distal humerus about the humeral component of the right elbow arthroplasty. Dictated by: Dictated on workstation # [id number]
== END ==
LOC: RAD 09:59
PROVIDERS: ATTEND Family Medicine
DX: S52.601A Unspecified fracture of lower end of right ulna, initial encounter for closed fracture (principal); S52.001A Unspecified fracture of upper end of right ulna, initial encounter for closed fracture; M19.021 Primary osteoarthritis, right elbow; W19.XXXA Unspecified fall, initial encounter
CPT/HCPCS: 73060; 73080

== ENCOUNTER 2021-08-16 11:44 | Emergency (ER) | payer MEDICARE ==
[~2021-08-16] VITALS: Ht 181 cm; Wt 90.9 kg
[~2021-08-16 11:44] MED LIST changes: -AMIO200T6 PO; +AMIO200T65 PO; +MONT-40 PO; -MONT10TA32 PO; +SCOP1PAT10 TD; -SCOP1PAT11 TD
--- NOTE | 2021-08-16 12:07 | ED Chest Pain ---
General Chief Complaint: Chest Pain Stated Complaint: HEADACHE - CHEST PAIN Nursing Triage Note: pt states headache and mid chest pain for 2-3 days, comes and goes for no reason Source: patient, family Exam Limitations: no limitations History of Present Illness Date Seen by Provider: August 16, 2021 Time Seen by Provider: 11:55 Initial Comments Patient is an 81-year-old male who presents to the emergency department today with a chief complaint of occipital headache since last as well as intermittent midsternal chest discomfort going on since . Patient states that he cannot describe what brings the chest pain on. He states it lasts for few minutes and then goes away. He has a history of a stent placed very remotely at [facility] in [place]. He sees Dr. Garza is his genetic counsellor. He had a Linq device placed about a year ago. He is scheduled for a follow-up appointment with Dr. Garza and the link 1 week from today. He states that they have been advised that the Linq is capturing some "events". Patient denies feeling lightheaded or dizzy. He feels generally weak. He is not currently having chest pain but states that he had some earlier this morning. He is taken Tylenol for the headache without any relief. Nothing makes the headache any better or any worse. He is not nauseous or short of breath currently. Mild swelling in his lower extremities. No problems with bowel or bladder other than some constipation. No recent fevers or chills. Approximately a week ago he did have an sinusitis bronchitis that he took doxycycline for. All other review of systems reviewed and negative except as stated. patient did mention to his nurse RENETTA Pelaez after I left the room that he was doing alot of outside activity last week - working above his head, trimming and also weed eating and general yard work. Timing/Duration: 4-5 days Severity/Quality: mild, tightness Location: central Radiation: no radiation Activities at Onset: none Prior CP/Workup: cardiac cath NTG SL RHINOLOGIST: No Associated Symptoms: headache Allergies and Home Medications Allergies Coded Allergies: amoxicillin (Unverified Allergy, Mild, 01/16/09) celecoxib (Unverified Allergy, Mild, 06/06/09) Sulfa (Sulfonamide Antibiotics) (Unverified Allergy, Unknown, 01/09/19) Uncoded Allergies: BANDAID ADHESIVE (Allergy, Mild, 3/6/10) Patient Home Medication List Home Medication List Reviewed: Yes Amiodarone HCl (Amiodarone HCl) 200 Mg Tablet, 200 MG PO UD Prescribed by: HELGA GARZA on 07/08/20 1028 Apixaban (Eliquis) 5 Mg Tablet, 5 MG PO BID Prescribed by: CHRISTOPHER DONATO on 07/04/20 1446 Atorvastatin Calcium (Lipitor) 10 Mg Tablet, 10 MG PO DAILY Prescribed by: HELGA GARZA on 01/09/19 0957 C,E,Zinc,Copper 11/Jioyc1s/Lut (Ocuvite Adult 50 Plus Softgel) 1 Each Capsule, 1 EACH PO DAILY, (Reported) Entered as Reported by: STACY JOHNS on 01/09/19739 Cetirizine HCl (Zyrtec) 10 Mg Tablet, 10 MG PO DAILY PRN for ALLERGY SYMPTOMS, (Reported) Entered as Reported by: DILLON DIMAS on 11/08/15 221 Clopidogrel Bisulfate (Plavix) 75 Mg Tablet, 75 MG PO DAILY, (Reported) Entered as Reported by: RUY LEARY on 07/04/20 09 Fluticasone Propionate (Flonase Allergy Relief) 9.9 Ml [place].susp, 1 SPRAY NS BID PRN for CONGESTION, (Reported) Entered as Reported by: STACY JOHNS on 01/09/19746 Hydrochlorothiazide (Hydrochlorothiazide) 25 Mg Tablet, 25 MG PO DAILY PRN for EDEMA, (Reported) Entered as Reported by: STACY JOHNS on 01/09/19739 Irbesartan (Irbesartan) 300 Mg Tablet, 300 MG PO 1800, (Reported) Entered as Reported by: STACY JOHNS on 01/09/19739 Sodium Chloride (Saline Nasal [place]) 30 Ml [place], 1 SPRAY NS PRN PRN for CONGEST ION, (Reported) Entered as Reported by: STACY JOHNS on 01/09/19746 Turmeric/Turmeric Root Extract (Turmeric 450-50 mg Capsule) 1 Each Capsule, 1 EACH PO DAILY, (Reported) Entered as Reported by: STACY JOHNS on 01/09/19739 Review of Systems Review of Systems Constitutional: see HPI EENTM: No Symptoms Reported Respiratory: No Symptoms Reported Cardiovascular: Chest Pain Gastrointestinal: No Symptoms Reported Genitourinary: No Symptoms Reported Musculoskeletal: neck pain Skin: no symptoms reported Psychiatric/Neurological: Headache All Other Systems Reviewed Negative Unless Noted: Yes Past Oxvsmqm-Unqagx-Scrfqx Hx Patient Social History Tobacco Use?: No Smoking Status: Former Smoker Substance use?: No Alcohol Use?: No Immunizations Up To Date Tetanus Booster (TDap): More than 5yrs First/Initial COVID19 Vaccinat: 05/01/2020 Second COVID19 Vaccination Mike: 05/25/2020 Third COVID19 Vaccination Date: 05/01/2020 Seasonal Allergies Seasonal Allergies: Yes Past Medical History Surgery/Hospitalization HX: herniated disc, lt wrist fused, double hernia, bi lat knee replacements, bi lat elbows replaced, cataracs, fx neck, one cardiac stint, linq recorder Surgeries: Yes Joint Replacement, Orthopedic Respiratory: Yes Sleep Apnea Currently Using CPAP: Yes Currently Using BIPAP: No Cardiac: Yes (AFLUTTER) Coronary Artery Disease, High Cholesterol, Hypertension Neurological: Yes Headaches /Migraines Reproductive Disorders: No Sexually Transmitted Disease: No Genitourinary: No Gastrointestinal: No Musculoskeletal: Yes (C-SPINE FX-S/P SURGERY;BACK SURGERY;WRIST FUSION;BILAT TKR;BILAT ELBOW;) Amputee, Arthritis, Back Injury, Chronic Back Pain Endocrine: Yes Diabetes, Non-Insulin dep HEENT: Yes Cataract Cancer: No Psychosocial: No Integumentary: No Blood Disorders: No Adverse Reaction/Blood Tranf: No Family Medical History Hypertension SOCIAL HISTORY: -ETOH--DENIES USE -DRUGS--DENIES USE -SMOKED 1 PPD, FROM AGE 17 TO AGE 29 PAST SURGICAL HISTORY: -CARDIAC CATH WITH STENT 01/2019 -BILATERAL KNEE ARTHROSCOPIES -BILATERAL KNEE REPLACEMENTS-LEFT 10/1997; RIGHT 09/2000 -CERVICAL SPINE FRACTURE WITH SURGICAL REPAIR 2008 -UMBILICAL HERNIA REPAIR 2004 -LEFT 5TH FINGER AMPUTATION 1999 -BILATERAL ELBOW REPLACEMENTS 1998 AT -CATARACT SURGERY 1997 -LUMBAR LAMINECTOMY 1997 -LAPAROSCOPIC BILATERAL INGUINAL HERNIA REPAIRS 1992 -LEFT WRIST FUSION 1990 Physical Exam Vital Signs Vital Signs - First Documented 08/16/21 11:49 Temp 36.0 Pulse 46 Resp 18 B/P (MAP) 166/80 (108) Pulse Ox 98 O2 Delivery Room Air Capillary Refill : Less Than 3 Seconds Height, Weight, BMI Height: 6'0" Weight: 220lbs. oz. 99.233048ok; 27.00 BMI Method:Stated General Appearance: No Apparent Distress, WD/WN, Other ((subdued speech)) HEENT: PERRL/EOMI, Pharynx Normal (slightly erythematous) Neck: Normal Inspection Respiratory: Lungs Clear, Normal Breath Sounds, No Accessory Muscle Use, No Respiratory Distress Cardiovascular: Regular Rate, Rhythm, Normal Peripheral Pulses, Bradycardia Gastrointestinal: Non Tender, Soft Extremity: Normal Capillary Refill, Normal Inspection, Normal Range of Motion Neurologic/Psychiatric: Alert, Oriented x3, No Motor/Sensory Deficits, Normal Mood/Affect Skin: Normal Color, Warm/Dry Progress/Results/Core Measures Results/Orders Lab Results Laboratory Tests Test 08/16/21 11:50 Range/Units White Blood Count 10.8 4.3-11.0 10^3/uL Red Blood Count 4.42 4.30-5.52 10^6/uL Hemoglobin 12.5 L 13.3-17.7 g/dL Hematocrit 39 L 40-54 % Mean Corpuscular Volume 88 80-99 fL Mean Corpuscular Hemoglobin 28 25-34 pg Mean Corpuscular Hemoglobin Concent 32 32-36 g/dL Red Cell Distribution Width 15.2 H 10.0-14.5 % Platelet Count 258 130-400 10^3/uL Mean Platelet Volume 10.1 9.0-12.2 fL Immature Granulocyte % (Auto) 1 % Neutrophils (%) (Auto) 73 42-75 % Lymphocytes (%) (Auto) 13 12-44 % Monocytes (%) (Auto) 11 0-12 % Eosinophils (%) (Auto) 2 0-10 % Basophils (%) (Auto) 0 0-10 % Neutrophils # (Auto) 7.9 H 1.8-7.8 10^3/uL Lymphocytes # (Auto) 1.4 1.0-4.0 10^3/uL Monocytes # (Auto) 1.2 H 0.0-1.0 10^3/uL Eosinophils # (Auto) 0.2 0.0-0.3 10^3/uL Basophils # (Auto) 0.0 0.0-0.1 10^3/uL Immature Granulocyte # (Auto) 0.1 0.0-0.1 10^3/uL Sodium Level 135 135-145 MMOL/L Potassium Level 4.3 3.6-5.0 MMOL/L Chloride Level 102 98-107 MMOL/L Carbon Dioxide Level 25 21-32 MMOL/L Anion Gap 8 5-14 MMOL/L Blood Urea Nitrogen 20 H 7-18 MG/DL Creatinine 0.94 0.60-1.30 MG/DL Estimat Glomerular Filtration Rate 81 BUN/Creatinine Ratio 21 Glucose Level 84 70-105 MG/DL Calcium Level 9.7 8.5-10.1 MG/DL Troponin I < 0.028 <0.028 NG/ML My Orders Orders - AMBER ROMERO MD Ekg Tracing (08/16/21 11:48) Ed Iv/Invasive Line Start (08/16/21 12:00) Cbc With Automated Diff (08/16/21 12:00) Basic Metabolic Panel (08/16/21 12:00) Troponin I [place] (08/16/21 12:00) Chest 1 View, Ap/Pa Only (08/16/21 12:00) Ct Head Wo (08/16/21 12:01) Vital Signs/I&O 08/16/21 11:49 Temp 36.0 Pulse 46 Resp 18 B/P (MAP) 166/80 (108) Pulse Ox 98 O2 Delivery Room Air Blood Pressure Mean: 108 Progress Progress Note : Time: 13:11 Progress Note Case discussed with Dr Garza. He checked the office and saw that Mr Lara was having some bouts of rate controlled Afib on his Linq. Nothing excessive. Patient looks comfortable here in the ED. No comp-laints of CP throughout his stayl. Labs unremarkable and imaging - same. No concerns for ACS at this time. Dr Garza said he could see him either tomorrow or in clinic and for them to call the office. As far as the headache is concerned, i recommended co nservative treatment with continued tylenol, ice packs, biofreeze or other muscle rubs for symptoms. Good return precautions discussed and if he has CP that causes nausea, SOB, sweating to have an ambulance bring him back in, Both the patient and his are comfortable with the plan of care - all questions are sought and answered - he is stable for discharge. Initial ECG Impression Date: August 16, 2021 Initial ECG Impression Time: 11:51 Initial ECG Rate: 46 Initial ECG Rhythm: S.Zachary Initial ECG Intervals MO interval 331 QRS 102 QTC 423 Initial ECG Impression: Sinus Bradycardia, 1st Degree AV Block Diagnostic Imaging Diagonstic Imaging: Xray Plain Films/CT/US/NM/MRI: chest Comments NAME: SABRA LARA [facility] REC#: [id number] PT STATUS: REG ER : 1940 PHYSICIAN: AMBER ROMERO MD ADMIT DATE: 08/16/21/ER Draft Date of Exam:08/16/21 CHEST 1 VIEW, AP/PA ONLY EXAMINATION: Chest radiograph, portable AP view. DATE: 08/16/2021 12:19 PM INDICATION: 81-year-old male, chest pain. COMPARISON: July 04, 2020. FINDINGS: Heart size and mediastinal contours are unchanged. There is no identified pneumothorax. There is no large pleural effusion. There is no identified focal airspace consolidation. IMPRESSION: No identified acute cardiopulmonary abnormality. Dictated on workstation # [id number] Dict: 08/16/21 1229 Trans: 08/16/21 1245 [facility] [id number] Interpreted by: JANET FLETCHER MD Electronically signed by: Diagonstic Imaging: CT Comments NAME: SABRA LARA [facility] REC#: [id number] PT STATUS: REG ER : 1940 PHYSICIAN: AMBER ROMERO MD ADMIT DATE: 08/16/21/ER Draft Date of Exam:08/16/21 CT HEAD WO PROCEDURE: CT head without contrast. TECHNIQUE: Multiple contiguous axial images were obtained through the brain without the use of intravenous contrast. Auto Exposure Controls were utilized during the CT exam to meet ALARA standards for radiation dose reduction. INDICATION: Patient is on blood thinner. FINDINGS: There were no findings suggestive of hemorrhage and there has been no change from prior dated 07/04/2020. Unchanged focal area of vague hyperdensity in the anterolateral left frontal lobe cortex seen on image 29 is stable from prior and may reflect some faint mineralization and calcification or recurrent focal area of beam hardening artifact owing to calvarial density overlying. No new abnormality. No acute finding. There is some chronic prominence of the bifrontal CSF and the extra-axial spaces. No acute extra-axial fluid collection. There is no hydrocephalus. The basilar cisterns are patent. There is no sulcal effacement. The orbits, sinuses, and calvarium are unremarkable. The sinuses are clear. The mastoids are clear. IMPRESSION: Some chronic atrophy, stable from prior. No hemorrhage, edema, or acute finding. No change from priors. Dictated on workstation # [id number] Dict: 08/16/21 1238 Trans: 08/16/21 1255 [id number] [id number] Interpreted by: UMA DRAKE Electronically signed by: Departure Impression Primary Impression: Chest pain Qualified Codes: R07.9 - Chest pain, unspecified Additional Impression: Headache Qualified Codes: G44.86 - Cervicogenic headache Disposition: HOME, SELF-CARE Condition: Stable Departure-Patient Inst. Decision time for Depature: 13:15 Referrals: CLEMENTE VAZ MD (PCP/Family) Primary Care Physician Patient Instructions: Chest Pain, Adult ED, Headache, Adult Add. Discharge Instructions: Please continue to drink plenty of fluids to stay well-hydrated, especially while working outside in the heat. Please call Dr. Garza's office this afternoon, he states that he can see you in the office tomorrow or . Use jyix-jdg-rqmfdkh muscle rubs such as Biofreeze or icy hot for neck pain possibly contributing to headache. Continue your extra strength Tylenol every 6 hours as needed. If you have any worsening headache especially with nausea and vomiting or worsening chest pain with shortness of breath, sweating and nausea please come back to the emergency room for reevaluation. Copy Copies To 1: HELGA GARZA MD Copies To 2: CLEMENTE VAZ MD, KATHRYN M MD August 16, 2021 12:07
[2021-08-16 12:11] LABS: BASOPHILS % (AUTO) 0 % (0-10); EOSINOPHILS # (AUTO) 0.2 10^3/uL (0.0-0.3); EOSINOPHILS % (AUTO) 2 % (0-10); HEMATOCRIT 39 % (40-54); HEMOGLOBIN 12.5 g/dL (13.3-17.7); LYMPHOCYTES # (AUTO) 1.4 10^3/uL (1.0-4.0); LYMPHOCYTES % (AUTO) 13 % (12-44); MEAN CORPUSCULAR HEMOGLOBIN 28 pg (25-34); MEAN CORPUSCULAR HGB CONC 32 g/dL (32-36); MEAN CORPUSCULAR VOLUME 88 fL (80-99); MEAN PLATELET VOLUME 10.1 fL (9.0-12.2); MONOCYTES # (AUTO) 1.2 10^3/uL (0.0-1.0); MONOCYTES % (AUTO) 11 % (0-12); NEUTROPHILS # (AUTO) 7.9 10^3/uL (1.8-7.8); NEUTROPHILS % (AUTO) 73 % (42-75); PLATELET COUNT 258 10^3/uL (130-400); WHITE BLOOD COUNT 10.8 10^3/uL (4.3-11.0)
[2021-08-16 12:16] LABS: CHLORIDE 102 MMOL/L (98-107); POTASSIUM 4.3 MMOL/L (3.6-5.0); SODIUM 135 MMOL/L (135-145)
[2021-08-16 12:17] LABS: CALCIUM 9.7 MG/DL (8.5-10.1); GLUCOSE 84 MG/DL (70-105)
[2021-08-16 12:19] LABS: CARBON DIOXIDE 25 MMOL/L (21-32)
[2021-08-16 12:21] LABS: CREATININE SERUM 0.94 MG/DL (0.60-1.30); GFR ESTIMATED 81
[2021-08-16 12:22] LABS: BUN/CREATININE RATIO 21
--- NOTE | 2021-08-16 12:46 | Diagnostic Imaging Report ---
EXAMINATION: Chest radiograph, portable AP view. DATE: 08/16/2021 12:19 PM INDICATION: 81-year-old male, chest pain. COMPARISON: July 04, 2020. FINDINGS: Heart size and mediastinal contours are unchanged. There is no identified pneumothorax. There is no large pleural effusion. There is no identified focal airspace consolidation. IMPRESSION: No identified acute cardiopulmonary abnormality. Dictated by: Dictated on workstation # [id number]
--- NOTE | 2021-08-16 12:55 | Diagnostic Imaging Report ---
PROCEDURE: CT head without contrast. TECHNIQUE: Multiple contiguous axial images were obtained through the brain without the use of intravenous contrast. Auto Exposure Controls were utilized during the CT exam to meet ALARA standards for radiation dose reduction. INDICATION: Patient is on blood thinner. FINDINGS: There were no findings suggestive of hemorrhage and there has been no change from prior dated 07/04/2020. Unchanged focal area of vague hyperdensity in the anterolateral left frontal lobe cortex seen on image 29 is stable from prior and may reflect some faint mineralization and calcification or recurrent focal area of beam hardening artifact owing to calvarial density overlying. No new abnormality. No acute finding. There is some chronic prominence of the bifrontal CSF and the extra-axial spaces. No acute extra-axial fluid collection. There is no hydrocephalus. The basilar cisterns are patent. There is no sulcal effacement. The orbits, sinuses, and calvarium are unremarkable. The sinuses are clear. The mastoids are clear. IMPRESSION: Some chronic atrophy, stable from prior. No hemorrhage, edema, or acute finding. No change from priors. Dictated by: Dictated on workstation # [id number]
[2021-08-16 13:22] VITALS: BP 154/71
== END 2021-08-16 13:22 | disposition home or self-care (01) ==
LOC: EDUNIT# 11:44 → ER 11:45
DX: G44.86 Cervicogenic headache (principal); R07.89 Other chest pain; I44.0 Atrioventricular block, first degree; I48.92 Unspecified atrial flutter; G47.30 Sleep apnea, unspecified; Z99.89 Dependence on other enabling machines and devices; Z87.891 Personal history of nicotine dependence; Z95.9 Presence of cardiac and vascular implant and graft, unspecified
CPT/HCPCS: 36415; 70450; 71045; 80048; 84484; 85025; 93005

== ENCOUNTER → 2021-08-26 | Outpatient (CLI) | payer MEDICARE ==
[~2021-08-26] MED LIST changes: +CATHETER FLUSH 10 ML SYR IVP PRN; +REGADENOSON 0.4 MG/5 ML SYR (LEXISCAN) IV ONE
[2021-08-26 12:16] VITALS: BP 157/79
--- NOTE | 2021-08-27 08:35 | Cardiology Stress Test Report ---
Stress Test Report Date of Procedure/Referring: Date of Procedure: August 27, 2021 PCP Clemente Baez MD Admitting Physician Admitting Physician: Attending Physician: Tran Garza MD Indications: CAD Baseline Heart Rate: 44 Baseline Blood Pressure: Blood Pressure Systolic: 157 Blood Pressure Diastolic: 79 Baseline Vitals Vital Signs Date Time Temp Pulse Resp B/P (MAP) Pulse Ox O2 Delivery O2 Flow Rate FiO2 08/26/21 12:16 44 157/79 (105) 99 Baseline EKG: Baseline EKG: Sinus bradycardia Summary After explaining the procedure to the patient, he signed a consent and then brought to the stress nuclear laboratory. Patient received 0.4 mg Lexiscan for stress test, ECG, heart rate and blood pressure were monitored continuously. Resting and stress dose of radio tracer were injected, imaging was acquired and reviewed in short axis, horizontal long axis and vertical long axis views. TID: 0.99 SSS: 8 SDS: 6 EF: 65 1. Patient was unable to exercise, test was converted to Lexiscan Myoview stress test 2. Patient tolerated Lexiscan well 3. Baseline sinus bradycardia persisted during test 4. Reversible ischemia involving the inferior wall and inferior apical wall and inferolateral wall 5. Normal left ventricular size, ejection fraction 65% Copy Copies To 1: CLEMENTE BAEZ MD, BASHAR J MD August 27, 2021 08:35
== END ==
LOC: CARD 11:00
PROVIDERS: ATTEND Internal Medicine Cardiovascular Disease
DX: I10 Essential (primary) hypertension (principal); I25.10 Atherosclerotic heart disease of native coronary artery without angina pectoris; R07.9 Chest pain, unspecified
CPT/HCPCS: 78452; 93017; A9502

== ENCOUNTER 2021-09-08 06:50 | Day surgery (SDC) | payer MEDICARE ==
[2021-09-08] VITALS (11 sets, daily range): BP systolic 133–181; BP diastolic 70–79
[~2021-09-08] VITALS: Ht 182.9 cm; Wt 93.8 kg
[~2021-09-08 06:50] MED LIST changes: -CATHETER FLUSH 10 ML SYR IVP PRN; -REGADENOSON 0.4 MG/5 ML SYR (LEXISCAN) IV ONE
[2021-09-08] MEDS ORDERED: HEParin (CATH LAB) 2,000 ML IV ONE (06:54)
[2021-09-08] MEDS ORDERED: LIDOCAINE 1% INJ 20 ML VIAL ONE (06:54)
[2021-09-08] MEDS ORDERED: NS IV 1000 ML 1,000 ML ONE (06:54)
[2021-09-08] MEDS ORDERED: NS IV 1000 ML 1,000 ML IV SCH ×2 (07:00→10:30)
[2021-09-08 07:37] LABS: PROTHROMBIN TIME PATIENT 13.2 SEC (12.2-14.7)
[2021-09-08 07:40] LABS: HEMATOCRIT 38 % (40-54); HEMOGLOBIN 12.2 g/dL (13.3-17.7); MEAN CORPUSCULAR HEMOGLOBIN 29 pg (25-34); MEAN CORPUSCULAR HGB CONC 32 g/dL (32-36); MEAN CORPUSCULAR VOLUME 90 fL (80-99); MEAN PLATELET VOLUME 9.9 fL (9.0-12.2); PLATELET COUNT 236 10^3/uL (130-400); WHITE BLOOD COUNT 7.2 10^3/uL (4.3-11.0)
[2021-09-08 07:45] LABS: ALBUMIN 3.8 GM/DL (3.2-4.5); POTASSIUM 3.9 MMOL/L (3.6-5.0)
[2021-09-08] MEDS ORDERED: AMIO200T65 PO (07:45)
[2021-09-08] MEDS ORDERED: APIX5TAB PO (07:45)
[2021-09-08] MEDS ORDERED: FERR325T18 PO (07:45)
[2021-09-08] MEDS ORDERED: POLY30DR6 OP (07:45)
[2021-09-08] MEDS ORDERED: ACET325T38 PO (07:45)
[2021-09-08] MEDS ORDERED: NITR0.4T39 SL (07:45)
[2021-09-08] MEDS ORDERED: ASPI-1238 PO (07:45)
--- NOTE | 2021-09-08 07:45 | Diagnostic Imaging Report ---
INDICATION: Abnormal stress test. Chest pain. Comparison with 08/16/2021. FINDINGS: Portable chest. The heart is not enlarged. The lungs are well-aerated and clear. No pulmonary edema or hilar adenopathy. No pneumothorax or pleural effusion. Implanted quality assurance monitor final over the left chest again noted. IMPRESSION: No acute abnormalities have developed. Dictated by: Dictated on workstation # [id number]
[2021-09-08 07:46] LABS: CALCIUM 9.3 MG/DL (8.5-10.1)
[2021-09-08 07:47] LABS: TOTAL PROTEIN 6.9 GM/DL (6.4-8.2)
[2021-09-08 07:49] LABS: BILIRUBIN,TOTAL 0.7 MG/DL (0.1-1.0)
[2021-09-08 07:51] LABS: CREATININE SERUM 0.89 MG/DL (0.60-1.30)
[2021-09-08] MEDS ORDERED: fentaNYL INJ 100 MCG/2 ML AMP ONE (07:57)
[2021-09-08] MEDS ORDERED: MIDAZOLAM 5 MG/5 ML (VERSED) VIAL ONE (07:58)
--- NOTE | 2021-09-08 08:43 | Conscious Sedation/ASA ---
Conscious Sedation Pre-Proced Time 08:42 ASA Score 3 For ASA 3 and 4: Consider anesthesia and medical clearance. Also, for patients with a history of failed moderate sedation consider anesthesia. Airway Lungs Heart ASA score ASA 1: a normal healthy patient ASA 2: a patient with a mild systemic disease (mid diabetes, controlled hypertension, obesity x ASA 3: a patient with a severe systemic disease that limits activity (angina, COPD, prior Myocardial infarction) ASA 4: a patient with an incapacitating disease that is a constant threat to life (CHF, renal failure) ASA 5: a moribund patient not expected to survive 24 hrs. (ruptured aneurysm) ASA 6: a declared brain- patient whose organs are being harvested. For emergent operations, add the letter E after the classification Mallampati Classification Grade 3 Sedation Plan Analgesia, Amnesia, Plan communicated to team members, Discussed options with patient/fam, Discussed risks with patient/fam The patient is an appropriate candidate to undergo the planned procedure, sedation, and anesthesia. The patient immediately re-assessed prior to indication. HELGA SANABRIA MD Sep 08, 2021 08:43
[2021-09-08] MEDS ORDERED: PATIENT MAY USE OWN MEDS, ALL PO SCH (10:30)
--- NOTE | 2021-09-08 10:31 | Discharge Inst-Post CATH ---
Discharge Inst-CATH/EP Problems Reviewed?: Yes Post Cardiac Cath/EP D/C Inst Follow Up/Plan Appointment with Dr. Garza's office in 2 to 4 weeks <b>CARDIAC CATH/EP PROCEDURE DISCHARGE INSTRUCTIONS</b> ACTIVITY * Go Home directly and rest. * Limit activity of the leg (or wrist if it was used) for 7 days including aer obics, swimming, jogging, bicycling, etc. * Restrict stair-climbing for 7 days if possible, if not, climb up with your non-cath leg, then bring together on the same step. * Avoid lifting, pushing, pulling or excessive movement of the affected extremi ty for 7 days. * Customary sexual activity may be resumed after 2 days-use caution not to use a position that strains or causes pain to the affected extremity. * No driving for 24 hours. * NO SMOKING. * Avoid straining for bowel movements for 7 days. * Gentle walking on level ground is allowed. * Returning to work will depend on the type of procedure and the results. Your doctor will discuss this with you. CALL YOUR DOCTOR FOR ANY OF THE FOLLOWING: *If bleeding from the puncture site occurs- Apply gentle pressure to site with clean cloth and call your doctor or EMS. * If a knot or lump forms under the skin, increases in size, or causes pain. * If bruising appears to be worsening or moving further down your leg instead of disappearing. * Temperature above 101 F. CARE OF YOUR GROIN INCISION; * Bruising or purple discoloration of the skin near the puncture site is common. * You may shower only, no bathtub bathing for 5 days. Be careful to avoid slipping as your leg may feel stiff. * If a closure device was used on your femoral artery, please see the attached guide regarding care of the device and your leg. * Leave dressing on FOR 24 hours. CARE OF YOUR WRIST INCISION; * Bruising or purple discoloration of the skin near the puncture site is common. * You may shower. * DO NOT submerge wrist. * Leave dressing on FOR 24 hours. HELGA GARZA MD Sep 08, 2021 10:31
--- NOTE | 2021-09-08 10:34 | Cardiac Cath Report ---
Cardiac Cath Report Physician (s)/Controlled Atmospheric Furnace Brazer (s) Physician HELGA SANABRIA MD Pre-Procedure Diagnosis Pre-Procedure Diagnosis: Chest pain Post-Procedure Note Procedure Start Date: Sep 08, 2021 Name of Procedure: Left heart catheterization Findings/Procedure Note PROCEDURE NOTE: 81 years old gentleman with history of coronary artery disease, stent to the circumflex artery, had an abnormal stress test, scheduled for cardiac catheterization possible PTCA. After explaining the procedure to the patient, all pros and cons were explained, all questions were answered. The patient signed the consent and then he was placed on the cardiac catheterization laboratory. Groin was prepped SL fashion local anesthesia was used. Sheath placed in the right femoral artery. Haley right and left catheter were used to access the coronary system. Haley right catheter prolapsed to the left ventricular cavity Left ventriculogram was not done, pressure was measured At the end of the procedure the sheath was removed. Closure device was deployed FINDINGS: Hemodynamics LV 158/16, end-diastolic pressure of 16 Aorta 166/64 mean of 100 ANATOMY: Left Main is free of obstructive disease Left Anterior Descending has mild to moderate disease at the midportion, nonobstructive disease Left Circumflex has patent stent in the midportion, obtuse marginal branch has moderate disease, mild disease distal circumflex artery. Nonobstructive disease Right Coronary Artery is dominant artery tortuous artery with moderate stenosis in the midportion nonobstructive disease LV Gram was not done, pressure was measured CONCLUSION: 1. Patent stent in the mid circumflex artery, small obtuse marginal branch with moderate stenosis, distal circumflex artery has mild disease 2. Dominant right coronary artery, tortuous artery with moderate stenosis at the midportion, mild disease distally, moderate stenosis in the mid LAD. 3. Normal left ventricular end-diastolic pressure DISCUSSION AND RECOMMENDATION: Abnormal stress test is probably due to small vessel disease, medical therapy is recommended no intervention is warranted Anesthesia Type: Conscious Sedation Estimated blood loss (mL): 15 ml Contrast Amount: 36 ml Total Radiation Dose: 568 mGy Post-Procedure Diagnosis Post-operative diagnosis: Chest pain Coronary artery disease Hypertension Hyperlipidemia HELGA SANABRIA MD Sep 08, 2021 10:34
== END 2021-09-08 15:00 ==
LOC: CATH 06:50 → SDC 10:53 → CATH 15:00
PROVIDERS: ATTEND Internal Medicine Cardiovascular Disease
DX: I25.10 Atherosclerotic heart disease of native coronary artery without angina pectoris (principal); I10 Essential (primary) hypertension; E78.2 Mixed hyperlipidemia; I48.0 Paroxysmal atrial fibrillation; I73.9 Peripheral vascular disease, unspecified; I65.23 Occlusion and stenosis of bilateral carotid arteries; R00.1 Bradycardia, unspecified; G47.33 Obstructive sleep apnea (adult) (pediatric); Z87.891 Personal history of nicotine dependence; Z79.01 Long term (current) use of anticoagulants; Z79.899 Other long term (current) drug therapy; Z99.89 Dependence on other enabling machines and devices
CPT/HCPCS: 71045; 80053; 80061; 85027; 85610; 85730; 87081; 93005; 93458; C1760; C1894; 36415

== ENCOUNTER 2022-03-03 10:01 | Emergency (ER) | payer MEDICARE ==
[~2022-03-03] VITALS: Ht 182.8 cm; Wt 90.7 kg
[~2022-03-03 10:01] MED LIST changes: +ACET325T38 PO; +CLOP-31 PO; -CLOP75TA69 PO; +FERR325T18 PO; +NITR0.4T39 SL; +POLY30DR6 OP
[2022-03-03 10:20] LABS: BASOPHILS # (AUTO) 0.1 10^3/uL (0.0-0.1); BASOPHILS % (AUTO) 1 % (0-10); EOSINOPHILS # (AUTO) 0.1 10^3/uL (0.0-0.3); EOSINOPHILS % (AUTO) 2 % (0-10); HEMATOCRIT 38 % (40-54); HEMOGLOBIN 12.1 g/dL (13.3-17.7); LYMPHOCYTES # (AUTO) 1.5 10^3/uL (1.0-4.0); LYMPHOCYTES % (AUTO) 25 % (12-44); MEAN CORPUSCULAR HEMOGLOBIN 29 pg (25-34); MEAN CORPUSCULAR HGB CONC 32 g/dL (32-36); MEAN CORPUSCULAR VOLUME 91 fL (80-99); MEAN PLATELET VOLUME 9.7 fL (9.0-12.2); MONOCYTES # (AUTO) 0.9 10^3/uL (0.0-1.0); MONOCYTES % (AUTO) 14 % (0-12); NEUTROPHILS # (AUTO) 3.5 10^3/uL (1.8-7.8); NEUTROPHILS % (AUTO) 58 % (42-75); PLATELET COUNT 263 10^3/uL (130-400)
--- NOTE | 2022-03-03 10:27 | ED Chest Pain ---
General Chief Complaint: Chest Pain Stated Complaint: UPPER BACK AND CHEST PAIN Nursing Triage Note: PT TO RM 7 WITH CC OF CHEST PAIN, JOHNS AND BACK PAIN. PT STATES PAIN HAS BEEN DAILY BUT MORE INTENSE THIS AM. PT STATES TOOK 1 NITRO PRIOR TO ARRIVAL. HX OF AFIB. PT RATES PAIN 11/10 Source: patient Exam Limitations: no limitations History of Present Illness Date Seen by Provider: Mar 03, 2022 Time Seen by Provider: 10:07 Initial Comments Patient is an 81-year-old male who presents to the emergency department today with a chief complaint of substernal chest pain that is "dull" that radiates into his back. Patient states that he has had it off and on for quite a while but has never been quite as intense as it was this morning. He states it started at approximately 9:00. He was not exerting himself. He states he was a little short of breath a little nauseous and clammy. He does not have a history of cardiac stents. He does have a history of intermittent atrial fibrillation. He is anticoagulated on Eliquis. He states he took a nitroglycerin before he came in to the emergency department. Initially his pain was a "7 or 8" and now it has basically resolved. He denies recent illnesses such as fevers, chills, productive cough. He is not fully vaccinated but he is COVID vaccinated x4. No other complaints of abdominal pain, bowel or bladder issues. All other review of systems reviewed and negative except as stated Timing/Duration: 1 hour Severity/Quality: moderate Location: substernal Radiation: back Activities at Onset: none ASA po FIELD MARKETING COORDINATOR: No NTG SL FIELD MARKETING COORDINATOR: Yes Associated Symptoms: diaphoresis, nausea/vomiting, shortness of breath Allergies and Home Medications Allergies Coded Allergies: amoxicillin (Unverified Allergy, Mild, 01/16/09) celecoxib (Unverified Allergy, Mild, 06/06/09) Sulfa (Sulfonamide Antibiotics) (Unverified Allergy, Unknown, 01/09/19) Uncoded Allergies: BANDAID ADHESIVE (Allergy, Mild, 06/06/09) Patient Home Medication List Home Medication List Reviewed: Yes Acetaminophen (Tylenol) 325 Mg Tablet, 650 MG PO Q6H PRN for PAIN-MILD (1-4), (Reported) Entered as Reported by: BLAIRE ETIENNE on 09/08/21 0745 Amiodarone HCl (Amiodarone HCl) 200 Mg Tablet, 200 MG PO DAILY, (Reported) Entered as Reported by: BLAIRE ETIENNE on 09/08/21744 Apixaban (Eliquis) 5 Mg Tablet, 5 MG PO BID, (Reported) Entered as Reported by: BLAIRE ETIENNE on 09/08/21744 Aspirin (Aspirin EC) 81 Mg Tablet.dr, 81 MG PO DAILY, (Reported) Entered as Reported by: BLAIRE ETIENNE on 09/08/21744 C,E,Zinc,Copper 11/Fmetd2e/Lut (Ocuvite Adult 50 Plus Softgel) 1 Each Capsule, 1 EACH PO DAILY, (Reported) Entered as Reported by: STACY JOHNS on 01/09/19739 Cetirizine HCl (Zyrtec) 10 Mg Tablet, 10 MG PO DAILY PRN for ALLERGY SYMPTOMS, (Reported) Entered as Reported by: DILLON DIMAS on 11/08/152212 Ferrous Sulfate (Ferrous Sulfate) 325 Mg (65 Mg Iron) Tablet, 325 MG PO Q48H, (Reported) Entered as Reported by: BLAIRE ETIENNE on 09/08/21744 Hydrochlorothiazide (Hydrochlorothiazide) 25 Mg Tablet, 25 MG PO DAILY PRN for EDEMA, (Reported) Entered as Reported by: STACY JOHNS on 01/09/19739 Irbesartan (Irbesartan) 300 Mg Tablet, 300 MG PO HS, (Reported) Entered as Reported by: STACY JOHNS on 01/09/19739 Nitroglycerin (Nitroglycerin) 0.4 Mg Tab.subl, 0.4 MG SL UD PRN for CHEST PAIN, (Reported) Entered as Reported by: BLAIRE ETIENNE on 09/08/21744 Polyethylene Glycol 400 (Visine Dry Eye Relief) 1 % Drops, 1 DROP OP PRN PRN for DRY EYES, (Reported) Entered as Reported by: BLAIRE ETIENNE on 09/08/21744 Review of Systems Review of Systems Constitutional: see HPI EENTM: No Symptoms Reported Respiratory: Shortness of Air Cardiovascular: Chest Pain Gastrointestinal: Nausea Genitourinary: No Symptoms Reported Musculoskeletal: back pain Skin: no symptoms reported Psychiatric/Neurological: No Symptoms Reported All Other Systems Reviewed Negative Unless Noted: Yes Past Ufwbsnw-Jskwbo-Narczt Hx Patient Social History Tobacco Use?: No Substance use?: No Alcohol Use?: No Pt feels they are or have been: No Immunizations Up To Date Tetanus Booster (TDap): More than 5yrs First/Initial COVID19 Vaccinat: 05/01/2020 Second COVID19 Vaccination Mike: 05/25/2020 Third COVID19 Vaccination Date: 05/01/2020 Seasonal Allergies Seasonal Allergies: Yes Past Medical History Surgery/Hospitalization HX: herniated disc, lt wrist fused, double hernia, bi lat knee replacements, bi lat elbows replaced, cataracs, fx neck, one cardiac stint, linq recorder Surgeries: Yes Coronary Stent, Joint Replacement, Orthopedic Respiratory: Yes Sleep Apnea Currently Using CPAP: Yes Currently Using BIPAP: No Cardiac: Yes (AFLUTTER) Coronary Artery Disease, High Cholesterol, Hypertension Neurological: Yes Headaches /Migraines Reproductive Disorders: No Sexually Transmitted Disease: No Genitourinary: No Gastrointestinal: No Musculoskeletal: Yes (C-SPINE FX-S/P SURGERY;BACK SURGERY;WRIST FUSION;BILAT TKR;BILAT ELBOW;) Amputee, Arthritis, Back Injury, Chronic Back Pain Endocrine: Yes Diabetes, Non-Insulin dep HEENT: Yes Cataract Cancer: No Psychosocial: No Integumentary: No Blood Disorders: No Adverse Reaction/Blood Tranf: No Family Medical History Hypertension SOCIAL HISTORY: -ETOH--DENIES USE -DRUGS--DENIES USE -SMOKED 1 PPD, FROM AGE 17 TO AGE 29 PAST SURGICAL HISTORY: -CARDIAC CATH WITH STENT 01/2019 -BILATERAL KNEE ARTHROSCOPIES -BILATERAL KNEE REPLACEMENTS-LEFT 10/1997; RIGHT 09/2000 -CERVICAL SPINE FRACTURE WITH SURGICAL REPAIR 2008 -UMBILICAL HERNIA REPAIR 2004 -LEFT 5TH FINGER AMPUTATION 1999 -BILATERAL ELBOW REPLACEMENTS 1998 AT -CATARACT SURGERY 1997 -LUMBAR LAMINECTOMY 1997 -LAPAROSCOPIC BILATERAL INGUINAL HERNIA REPAIRS 1992 -LEFT WRIST FUSION 1990 Physical Exam Vital Signs Vital Signs - First Documented 03/03/22 10:06 Temp 36.4 Pulse 62 Resp 12 B/P (MAP) 127/76 (93) Pulse Ox 96 O2 Delivery Room Air Capillary Refill : Less Than 3 Seconds Height, Weight, BMI Height: 6'0" Weight: 220lbs. oz. 99.682332cu; 27.00 BMI Method:Stated General Appearance: No Apparent Distress, WD/WN HEENT: PERRL/EOMI Neck: Normal Inspection Respiratory: Lungs Clear, Normal Breath Sounds, No Accessory Muscle Use, No Respiratory Distress Cardiovascular: Regular Rate, Rhythm, Normal Peripheral Pulses (2+ radial bila terally) Gastrointestinal: Normal Bowel Sounds, Soft Extremity: Normal Capillary Refill, Normal Inspection, Normal Range of Motion, Non Tender, No Calf Tenderness, Pedal Edema (trace) Neurologic/Psychiatric: Alert, Oriented x3, No Motor/Sensory Deficits, Normal Mood/Affect, study manager II-XII Norm as Tested Skin: Normal Color, Warm/Dry Progress/Results/Core Measures Results/Orders Lab Results Laboratory Tests Test 03/03/22 10:09 03/03/22 11:50 03/03/22 13:05 Range/Units White Blood Count 6.0 4.3-11.0 10^3/uL Red Blood Count 4.16 L 4.30-5.52 10^6/uL Hemoglobin 12.1 L 13.3-17.7 g/dL Hematocrit 38 L 40-54 % Mean Corpuscular Volume 91 80-99 fL Mean Corpuscular Hemoglobin 29 25-34 pg Mean Corpuscular Hemoglobin Concent 32 32-36 g/dL Red Cell Distribution Width 13.5 10.0-14.5 % Platelet Count 263 130-400 10^3/uL Mean Platelet Volume 9.7 9.0-12.2 fL Immature Granulocyte % (Auto) 0 % Neutrophils (%) (Auto) 58 42-75 % Lymphocytes (%) (Auto) 25 12-44 % Monocytes (%) (Auto) 14 H 0-12 % Eosinophils (%) (Auto) 2 0-10 % Basophils (%) (Auto) 1 0-10 % Neutrophils # (Auto) 3.5 1.8-7.8 10^3/uL Lymphocytes # (Auto) 1.5 1.0-4.0 10^3/uL Monocytes # (Auto) 0.9 0.0-1.0 10^3/uL Eosinophils # (Auto) 0.1 0.0-0.3 10^3/uL Basophils # (Auto) 0.1 0.0-0.1 10^3/uL Immature Granulocyte # (Auto) 0.0 0.0-0.1 10^3/uL Prothrombin Time 14.3 12.2-14.7 SEC INR Comment 1.1 0.8-1.4 Activated Partial Thromboplast Time 36 H 24-35 SEC Sodium Level 136 135-145 MMOL/L Potassium Level 4.1 3.6-5.0 MMOL/L Chloride Level 105 98-107 MMOL/L Carbon Dioxide Level 22 21-32 MMOL/L Anion Gap 9 5-14 MMOL/L Blood Urea Nitrogen 16 7-18 MG/DL Creatinine 1.00 0.60-1.30 MG/DL Estimat Glomerular Filtration Rate 75 BUN/Creatinine Ratio 16 Glucose Level 146 H 70-105 MG/DL Calcium Level 9.4 8.5-10.1 MG/DL Corrected Calcium 9.7 8.5-10.1 MG/DL Magnesium Level 2.0 1.6-2.4 MG/DL Total Bilirubin 0.6 0.1-1.0 MG/DL Aspartate Amino Transf (AST/SGOT) 27 5-34 U/L Alanine Aminotransferase (ALT/SGPT) 26 0-55 U/L Alkaline Phosphatase 119 40-136 U/L Myoglobin 65.9 10.0-92.0 NG/ML Troponin I < 0.028 < 0.028 <0.028 NG/ML Total Protein 6.9 6.4-8.2 GM/DL Albumin 3.6 3.2-4.5 GM/DL Influenza Type A (RT-PCR) Not Detected Not Detecte Influenza Type B (RT-PCR) Not Detected Not Detecte SARS-CoV-2 RNA (RT-PCR) Not Detected Not Detecte My Orders Orders - AMBER ROMERO MD Cbc With Automated Diff (03/03/22 10:15) Magnesium (03/03/22 10:15) Chest 1 View, Ap/Pa Only (03/03/22 10:15) Ekg Tracing (03/03/22 10:15) Comprehensive Metabolic Panel (03/03/22 10:15) Myoglobin Serum (03/03/22 10:15) Protime With Inr (03/03/22 10:15) Partial Thromboplastin Time (03/03/22 10:15) O2 (03/03/22 10:15) Monitor-Rhythm Ecg Trace Only (03/03/22 10:15) Lipid Panel (03/04/22 06:00) Ed Iv/Invasive Line Start (03/03/22 10:15) Troponin I Deanne (03/03/22 10:15) Covid 19 Inhouse Test (03/03/22 11:49) Influenza A And B By Pcr (03/03/22 11:49) Isolation Central Supply Req (03/03/22 11:49) Troponin I Frio (03/03/22 12:45) Ekg Tracing (03/03/22 12:09) Vital Signs/I&O 03/03/22 10:06 Temp 36.4 Pulse 62 Resp 12 B/P (MAP) 127/76 (93) Pulse Ox 96 O2 Delivery Room Air Blood Pressure Mean: 93 Progress Progress Note #1: Time: 12:10 Progress Note Notified by nursing staff of patient's low heart rate down into the 40s. Lowest I can see on telemetry is 43. His WI interval was quite prolonged. We will repeat EKG to make sure that he has not converted into an AV block rhythm. Patient is asymptomatic. I had just checked on him, no continuing chest pain. I advised him that we will repeat his troponin level at about 1245. That would put him at almost 3 hours to 4 hours post onset of chest pain. He did have a heart cath in September of this year, he does have a pre-existing stent. He had mild to moderate disease in his other arteries. Will discuss with Dr. Garza once we get that second troponin back. His also requested that we test him for COVID as he has had a mild cough and runny nose. Progress Note #2: Time: 13:47 Progress Note Patient second troponin is negative. He has remained pain-free. Heart rate re seth in the upper 40s at this time. I discussed patient presentation, exam and findings with Dr. Garza. He would like to see the patient next week in clinic. He did not indicate that he would like any changes to his home medications at this time. I communicated all of this to the patient and his were comfortable with discharge. All questions are sought and answered. Patient is advised to return to the emergency room if he has any recurrence of chest pain or other concerning symptoms. Initial ECG Impression Date: Mar 03, 2022 Initial ECG Impression Time: 10:11 Initial ECG Rate: 58 Initial ECG Rhythm: Normal Sinus Initial ECG Intervals: WI (296) Comment First-degree AV block noted with a WI interval of 296. No ST segment elevation or depression, normal QRS, normal QTC no ectopy EKG : EKG Time: 12:14 Rate: 44 Rhythm: S.Zachary Intervals WI 313 QRS 100 QTc 431 ECG Impression: Normal Diagnostic Imaging Diagonstic Imaging: Xray Plain Films/CT/US/NM/MRI: chest Comments [facility] [place], [place] NAME: SABRA LARA REC#: [id number] PT STATUS: REG ER : 1940 PHYSICIAN: AMBER ROMERO MD ADMIT DATE: 03/03/22/ER Signed Date of Exam:03/03/22 CHEST 1 VIEW, AP/PA ONLY INDICATION: Chest pain EXAM: Portable chest at 10:28 AM There is a loop recorder projecting over the left lower chest. Heart size and pulmonary vascularity are normal. Lungs are clear. There are no effusions or pneumothoraces. IMPRESSION: No acute abnormalities in the chest. Dictated by: Dictated on workstation # [id number] Dict: 03/03/22 1035 Trans: 03/03/22 1124 [facility] [id number] Interpreted by: THALIA CARMICHAEL MD Electronically signed by: THALIA CARMICHAEL MD 03/03/22 1124 Departure Impression Primary Impression: Chest pain Qualified Codes: R07.9 - Chest pain, unspecified Additional Impressions: Sinus bradycardia 1st degree AV block Disposition: 01 HOME, SELF-CARE Condition: Stable Departure-Patient Inst. Decision time for Depature: 13:48 Referrals: CLEMENTE VAZ MD (PCP/Family) Primary Care Physician HELGA GARZA MD Patient Instructions: Chest Pain That Is Not Caused by the Heart (DC) Add. Discharge Instructions: Continue your current medications as prescribed by Dr. VAZ and Dr. Garza. Monitor your heart rate and your blood pressure, keep a log of this until you follow-up with Dr. Garza next week. Please call his office today for a follow- up appointment early next week. Come back to the emergency room if you have a return of chest pain especially if you have shortness of breath, nausea or any other emergent, concerning symptoms. Copy Copies To 1: CLEMENTE VAZ MD Copies To 2: HELGA GARZA MD, KATHRYN M MD Mar 03, 2022 10:27
[2022-03-03 10:36] LABS: ALBUMIN 3.6 GM/DL (3.2-4.5); POTASSIUM 4.1 MMOL/L (3.6-5.0)
[2022-03-03 10:37] LABS: CALCIUM 9.4 MG/DL (8.5-10.1); INR 1.1 (0.8-1.4); PROTHROMBIN TIME PATIENT 14.3 SEC (12.2-14.7)
[2022-03-03 10:38] LABS: TOTAL PROTEIN 6.9 GM/DL (6.4-8.2)
--- NOTE | 2022-03-03 10:39 | Diagnostic Imaging Report ---
INDICATION: Chest pain EXAM: Portable chest at 10:28 AM There is a loop recorder projecting over the left lower chest. Heart size and pulmonary vascularity are normal. Lungs are clear. There are no effusions or pneumothoraces. IMPRESSION: No acute abnormalities in the chest. Dictated by: Dictated on workstation # [id number]
[2022-03-03 10:40] LABS: BILIRUBIN,TOTAL 0.6 MG/DL (0.1-1.0)
[2022-03-03 14:04] VITALS: BP 161/76
== END 2022-03-03 14:04 | disposition home or self-care (01) ==
LOC: EDUNIT# 10:01 → ER 10:03
DX: I44.0 Atrioventricular block, first degree (principal); I48.91 Unspecified atrial fibrillation; G47.30 Sleep apnea, unspecified; Z79.01 Long term (current) use of anticoagulants; Z99.89 Dependence on other enabling machines and devices; Z20.822 Contact with and (suspected) exposure to COVID-19
CPT/HCPCS: 36415; 71045; 80053; 83735; 83874; 84484; 85025; 85610; 85730; 87636; 93005; 93041

== ENCOUNTER → 2022-07-19 | Outpatient (CLI) | payer MEDICARE ==
--- NOTE | 2022-07-19 16:05 | Diagnostic Imaging Report ---
PROCEDURE: US Thyroid. TECHNIQUE: Multiple Real-time grayscale images were obtained of the thyroid in various projections. INDICATION: Abnormal thyroid labs. COMPARISON: No prior thyroid ultrasound studies are available for comparison. FINDINGS: Both lobes of the thyroid gland are enlarged. The right lobe measures 5.6 x 2.3 x 1.6 cm and the left lobe measures 5.5 x 2.2 x 1.7 cm. The isthmus is 8 mm in thickness. Both lobes appear to be fairly homogeneous in echotexture. No discrete thyroid mass is identified. IMPRESSION: Thyromegaly. The study is otherwise unremarkable. Dictated by: Dictated on workstation # [id number]
== END ==
LOC: RAD 09:34
PROVIDERS: ATTEND Nurse Practitioner Family
DX: E01.0 Iodine-deficiency related diffuse (endemic) goiter (principal)
CPT/HCPCS: 76536

== ENCOUNTER → 2022-07-19 | Outpatient (CLI) | payer MEDICARE | LOC: CARD 08:36 | PROVIDERS: ATTEND Physician Assistant | DX: I11.9 Hypertensive heart disease without heart failure (principal) | CPT/HCPCS: 93306 ==

== ENCOUNTER 2022-08-30 14:06 | Outpatient (RCR) | payer MEDICARE ==
[2022-08-30 15:34] LABS: BASOPHILS # (AUTO) 0.1 10^3/uL (0.0-0.1); BASOPHILS % (AUTO) 1 % (0-10); EOSINOPHILS # (AUTO) 0.2 10^3/uL (0.0-0.3); EOSINOPHILS % (AUTO) 2 % (0-10); HEMATOCRIT 33 % (40-54); HEMOGLOBIN 10.4 g/dL (13.3-17.7); LYMPHOCYTES # (AUTO) 1.5 10^3/uL (1.0-4.0); LYMPHOCYTES % (AUTO) 22 % (12-44); MEAN CORPUSCULAR HEMOGLOBIN 29 pg (25-34); MEAN CORPUSCULAR HGB CONC 32 g/dL (32-36); MEAN CORPUSCULAR VOLUME 91 fL (80-99); MEAN PLATELET VOLUME 10.2 fL (9.0-12.2); MONOCYTES # (AUTO) 0.9 10^3/uL (0.0-1.0); MONOCYTES % (AUTO) 14 % (0-12); NEUTROPHILS # (AUTO) 4.2 10^3/uL (1.8-7.8); NEUTROPHILS % (AUTO) 62 % (42-75); PLATELET COUNT 256 10^3/uL (130-400); WHITE BLOOD COUNT 6.8 10^3/uL (4.3-11.0)
[2022-08-30 15:54] LABS: ALBUMIN 3.3 GM/DL (3.2-4.5); BILIRUBIN,TOTAL 0.5 MG/DL (0.1-1.0); CALCIUM 9.3 MG/DL (8.5-10.1); CREATININE SERUM 0.83 MG/DL (0.60-1.30); POTASSIUM 4.2 MMOL/L (3.6-5.0); TOTAL PROTEIN 6.3 GM/DL (6.4-8.2)
== END 2022-08-31 | disposition home or self-care (01) ==
LOC: ONC 14:06
PROVIDERS: ATTEND Internal Medicine Hematology & Oncology
DX: C49.9 Malignant neoplasm of connective and soft tissue, unspecified (principal); I25.10 Atherosclerotic heart disease of native coronary artery without angina pectoris; E78.00 Pure hypercholesterolemia, unspecified; I11.9 Hypertensive heart disease without heart failure; E78.2 Mixed hyperlipidemia; E66.9 Obesity, unspecified
CPT/HCPCS: 80053; 85025

== ENCOUNTER → 2022-09-09 | Outpatient (CLI) | payer MEDICARE ==
[~2022-09-09] MED LIST changes: +GADOTERATE 0.5 MMOL/ML (CLARISCAN) 20 ML VIAL IV ONE; +HOLD METFORMIN - RECEIVED CONTRAST 20 ML VIAL IV SCH; +IOHEXOL 350 MG/ML 100 ML (OMNIPAQUE 350) VIAL IV ONE; +NS 100 ML (IVPB) BAG IV ONE
--- NOTE | 2022-09-09 11:56 | Diagnostic Imaging Report ---
PROCEDURE: MRI upper extremity any joint with and without contrast right. TECHNIQUE: Multiplanar, multisequence pre and post contrast-enhanced MRI of the right upper extremity was accomplished. 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 Follow-up. COMPARISON: None. FINDINGS: An MRI marker is placed superior to the right shoulder near the neck. Underlying the marker, there is a small T2 hyperintense lesion measuring approximately 2.0 x 1.0 x 1.3 cm in size. This is T1 hyperintense prior to contrast administration, and may represent a small hematoma given the history of prior surgery. No other masses are seen around the soft tissues. No lymphadenopathy is seen. The shoulder itself is suboptimally evaluated on this modified exam due to the [id number]. There does appear to be high-grade partial-thickness tearing of the supraspinatus tendon. There is generalized muscular atrophy. The long head of the biceps tendon appears to be intact. There are mild degenerative changes in the glenohumeral joint. There is mild degenerative change in the acromioclavicular joint. The coracoclavicular and coracoacromial ligaments appear intact. No enhancing lesions are seen. IMPRESSION: 1. Subcutaneous lesion at the surgical site most likely represents a small hematoma. No other masses or lymphadenopathy are seen. 2. Degenerative changes in the right shoulder with high-grade partial-thickness tearing of the supraspinatus tendon. Dictated by: Dictated on workstation # [id number]
--- NOTE | 2022-09-09 12:25 | Diagnostic Imaging Report ---
EXAMINATION: CT chest with and without intravenous contrast. TECHNIQUE: Multiple contiguous axial images were obtained through the chest before and after the uneventful administration of intravenous contrast. All CT scans use one or more of the following dose optimizing techniques: automated exposure control, MA and/or KvP adjustment based on patient size and exam type or iterative reconstruction. 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 Mediastinum: Heart size is normal without significant pericardial effusion. Calcifications of the aorta and coronary vessels. Thoracic aorta is normal in caliber. Prominent right axillary lymph nodes measuring up to 1.7 x 1.1 cm (series 5 image 40). These are not significantly changed in size from 03/21/2019. Lungs and airways: The lungs are clear without consolidation, pleural effusion, or pneumothorax. No suspicious pulmonary lesion. The airways are normal. Upper abdomen: A few hepatic cysts are present. There is cholelithiasis. A few scattered colonic diverticula are seen. Musculoskeletal: There is mild compression deformity of the L1 vertebral body. No suspicious osseous lesion. IMPRESSION: 1. No findings of metastatic disease within the chest. Dictated by: Dictated on workstation # [id number]
== END ==
LOC: RAD 09:21
PROVIDERS: ATTEND Internal Medicine Hematology & Oncology
DX: M19.011 Primary osteoarthritis, right shoulder (principal); M75.101 Unspecified rotator cuff tear or rupture of right shoulder, not specified as traumatic; C49.9 Malignant neoplasm of connective and soft tissue, unspecified
CPT/HCPCS: 71270; 73223

== ENCOUNTER 2022-09-13 13:55 | Outpatient (RCR) | payer MEDICARE ==
[~2022-09-13 13:55] MED LIST changes: -GADOTERATE 0.5 MMOL/ML (CLARISCAN) 20 ML VIAL IV ONE; -HOLD METFORMIN - RECEIVED CONTRAST 20 ML VIAL IV SCH; -IOHEXOL 350 MG/ML 100 ML (OMNIPAQUE 350) VIAL IV ONE; -NS 100 ML (IVPB) BAG IV ONE
== END 2022-09-30 | disposition home or self-care (01) ==
LOC: ONC 13:55
PROVIDERS: ATTEND Internal Medicine Hematology & Oncology
DX: C49.9 Malignant neoplasm of connective and soft tissue, unspecified (principal); I25.10 Atherosclerotic heart disease of native coronary artery without angina pectoris; E78.00 Pure hypercholesterolemia, unspecified; I11.9 Hypertensive heart disease without heart failure; E78.2 Mixed hyperlipidemia; E66.9 Obesity, unspecified

== ENCOUNTER 2022-09-17 13:33 | Emergency (ER) | payer MEDICARE ==
[~2022-09-17] VITALS: Ht 182 cm; Wt 960.7 kg
[2022-09-17 13:49] LABS: BASOPHILS # (AUTO) 0.1 10^3/uL (0.0-0.1); BASOPHILS % (AUTO) 1 % (0-10); EOSINOPHILS # (AUTO) 0.2 10^3/uL (0.0-0.3); EOSINOPHILS % (AUTO) 2 % (0-10); HEMATOCRIT 35 % (40-54); HEMOGLOBIN 11.1 g/dL (13.3-17.7); LYMPHOCYTES # (AUTO) 1.6 10^3/uL (1.0-4.0); LYMPHOCYTES % (AUTO) 20 % (12-44); MEAN CORPUSCULAR HEMOGLOBIN 29 pg (25-34); MEAN CORPUSCULAR HGB CONC 32 g/dL (32-36); MEAN CORPUSCULAR VOLUME 90 fL (80-99); MONOCYTES % (AUTO) 13 % (0-12); NEUTROPHILS # (AUTO) 5.3 10^3/uL (1.8-7.8); NEUTROPHILS % (AUTO) 65 % (42-75); PLATELET COUNT 287 10^3/uL (130-400); WHITE BLOOD COUNT 8.2 10^3/uL (4.3-11.0)
[2022-09-17 13:57] LABS: ALBUMIN 3.4 GM/DL (3.2-4.5)
[2022-09-17 13:58] LABS: CHLORIDE 109 MMOL/L (98-107); POTASSIUM 4.8 MMOL/L (3.6-5.0); SODIUM 139 MMOL/L (135-145)
[2022-09-17 13:59] LABS: CALCIUM 9.9 MG/DL (8.5-10.1); INR 1.2 (0.8-1.4); PROTHROMBIN TIME PATIENT 15.3 SEC (12.2-14.7)
[2022-09-17 14:00] LABS: GLUCOSE 113 MG/DL (70-105); TOTAL PROTEIN 6.5 GM/DL (6.4-8.2)
[2022-09-17 14:01] LABS: CARBON DIOXIDE 24 MMOL/L (21-32)
[2022-09-17 14:02] LABS: BILIRUBIN,TOTAL 0.4 MG/DL (0.1-1.0)
[2022-09-17 14:03] LABS: ALKALINE PHOSPHATASE 117 U/L (40-136); CREATININE SERUM 0.92 MG/DL (0.60-1.30); GFR ESTIMATED 83
[2022-09-17 14:04] LABS: BUN/CREATININE RATIO 22
[2022-09-17 14:06] LABS: ALANINE AMINOTRANSFERASE 25 U/L (0-55)
[2022-09-17 14:07] LABS: MAGNESIUM 2.1 MG/DL (1.6-2.4)
--- NOTE | 2022-09-17 14:33 | Diagnostic Imaging Report ---
EXAMINATION: Chest radiograph, portable AP view. DATE: 09/17/2022 2:12 PM INDICATION: 82-year-old male, chest pain. COMPARISON: March 03, 2022. FINDINGS: Heart size and mediastinal contours are unchanged. There is no identified pneumothorax. There is no large pleural effusion. There are streaky opacities in the left lung base which are unchanged. IMPRESSION: 1. No interval identified acute cardiopulmonary abnormality. Dictated by: Dictated on workstation # [id number]
--- NOTE | 2022-09-17 15:07 | ED Chest Pain ---
General Chief Complaint: Abdominal/GI Problems Stated Complaint: CHEST PAIN Nursing Triage Note: PT PRESENTS TO ED WITH C/O STABBING LEFT SIDED CHEST PAIN THAT RADIATES ACROSS HIS CHEST THAT BEGAN 2 DAYS AGO. PT REPORTS NOT FEELING WELL FOR A FEW DAYS. SX OF SOB, NAUSEA, AND LIGHTHEADEDNESS ACCOMPANYING THE CHEST PAIN. Source: patient, old records Exam Limitations: no limitations History of Present Illness Date Seen by Provider: Sep 17, 2022 Time Seen by Provider: 13:46 Initial Comments This 82-year-old gentleman presents to the emergency room complaining of in termittent chest pain for the past 1 to 2 weeks. Pain is in the lower chest along the costal margins. He also has pain and tenderness generalized in the abdomen. He reports the last episode was about 1 hour ago, but he is experiencing no chest pain at this time. Abdomen is tender to palpation on exam. He has had associated symptoms of shortness of air and fatigue. He has history of coronary artery disease with stenting and atrial fibrillation treated with Eliquis for stroke prophylaxis. Review of his chart reveals a cardiac catheterization about 1 year ago. Moderate disease was noted with patent stents. No obstructive disease requiring interventions was noted at that time. He denies any nausea, vomiting, diarrhea, or fever. He has experienced some constipation. He reports he typically only has bowel movements every 3 or 4 days and they are difficult to produce. He has not treated his constipation. 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 His oncologist is Dr. Harrison. His surgeon is Dr. Edmond. His vet tech is Dr. Garza. His primary care provider is Dr. Baez. Allergies and Home Medications Allergies Coded Allergies: amoxicillin (Unverified Allergy, Mild, 01/16/09) celecoxib (Unverified Allergy, Mild, 06/06/09) Sulfa (Sulfonamide Antibiotics) (Unverified Allergy, Unknown, 01/09/19) Uncoded Allergies: BANDAID ADHESIVE (Allergy, Mild, 06/06/09) Patient Home Medication List Home Medication List Reviewed: Yes Acetaminophen (Tylenol) 325 Mg Tablet, 650 MG PO Q6H PRN for PAIN-MILD (1-4), (Reported) Entered as Reported by: BLAIRE ETIENNE on 09/08/21 0745 Amiodarone HCl (Amiodarone HCl) 200 Mg Tablet, 200 MG PO DAILY, (Reported) Entered as Reported by: BLAIRE ETIENNE on 09/08/21744 Apixaban (Eliquis) 5 Mg Tablet, 5 MG PO BID, (Reported) Entered as Reported by: BLAIRE ETIENNE on 09/08/21744 Aspirin (Aspirin EC) 81 Mg Tablet.dr, 81 MG PO DAILY, (Reported) Entered as Reported by: BLAIRE ETIENNE on 09/08/21744 C,E,Zinc,Copper 11/Kutwo7a/Lut (Ocuvite Adult 50 Plus Softgel) 1 Each Capsule, 1 EACH PO DAILY, (Reported) Entered as Reported by: STACY JOHNS on 01/09/19739 Cetirizine HCl (Zyrtec) 10 Mg Tablet, 10 MG PO DAILY PRN for ALLERGY SYMPTOMS, (Reported) Entered as Reported by: DILLON DIMAS on 11/08/152212 Ferrous Sulfate (Ferrous Sulfate) 325 Mg (65 Mg Iron) Tablet, 325 MG PO Q48H, (Reported) Entered as Reported by: BLAIRE ETIENNE on 09/08/21744 Hydrochlorothiazide (Hydrochlorothiazide) 25 Mg Tablet, 25 MG PO DAILY PRN for EDEMA, (Reported) Entered as Reported by: STACY JOHNS on 01/09/19739 Irbesartan (Irbesartan) 300 Mg Tablet, 300 MG PO HS, (Reported) Entered as Reported by: STACY JOHNS on 01/09/19739 Nitroglycerin (Nitroglycerin) 0.4 Mg Tab.subl, 0.4 MG SL UD PRN for CHEST PAIN, (Reported) Entered as Reported by: BLAIRE ETIENNE on 09/08/21744 Polyethylene Glycol 400 (Visine Dry Eye Relief) 1 % Drops, 1 DROP OP PRN PRN for DRY EYES, (Reported) Entered as Reported by: BLAIRE ETIENNE on 09/08/21744 Review of Systems Review of Systems Constitutional: no symptoms reported EENTM: No Symptoms Reported Respiratory: See HPI Cardiovascular: See HPI Gastrointestinal: See HPI Genitourinary: No Symptoms Reported Musculoskeletal: see HPI Skin: no symptoms reported Psychiatric/Neurological: No Symptoms Reported Endocrine: No Symptoms Reported Hematologic/Lymphatic: No Symptoms Reported Past Zjflcts-Hnbdof-Onbtee Hx Patient Social History Tobacco Use?: No Substance use?: No Alcohol Use?: No Immunizations Up To Date Tetanus Booster (TDap): More than 5yrs First/Initial COVID19 Vaccinat: 05/01/2020 Second COVID19 Vaccination Mike: 05/25/2020 Third COVID19 Vaccination Date: 05/01/2020 Seasonal Allergies Seasonal Allergies: Yes Past Medical History Surgery/Hospitalization HX: herniated disc, lt wrist fused, double hernia, bi lat knee replacements, bi lat elbows replaced, cataracs, fx neck, one cardiac stint, linq recorder Surgeries: Yes Coronary Stent, Joint Replacement, Orthopedic (Resection of sarcoma) Respiratory: Yes Sleep Apnea Currently Using CPAP: Yes Currently Using BIPAP: No Cardiac: Yes (AFLUTTER) Atrial Fibrillation, Coronary Artery Disease, High Cholesterol, Hypertension Neurological: Yes Headaches /Migraines Reproductive Disorders: No Sexually Transmitted Disease: No Genitourinary: No Gastrointestinal: No Musculoskeletal: Yes (C-SPINE FX-S/P SURGERY;BACK SURGERY;WRIST FUSION;BILAT TKR;BILAT ELBOW;) Amputee, Arthritis, Back Injury, Chronic Back Pain Endocrine: Yes Diabetes, Non-Insulin dep HEENT: Yes Cataract Cancer: Yes (Sarcoma of right shoulder) Did You Recieve Any Treatments: Yes What Type of Treatment Did You: Surgical Intervention Psychosocial: No Integumentary: No Blood Disorders: No Adverse Reaction/Blood Tranf: No Family Medical History Hypertension SOCIAL HISTORY: -ETOH--DENIES USE -DRUGS--DENIES USE -SMOKED 1 PPD, FROM AGE 17 TO AGE 29 PAST SURGICAL HISTORY: -CARDIAC CATH WITH STENT 01/2019 -BILATERAL KNEE ARTHROSCOPIES -BILATERAL KNEE REPLACEMENTS-LEFT 10/1997; RIGHT 09/2000 -CERVICAL SPINE FRACTURE WITH SURGICAL REPAIR 2008 -UMBILICAL HERNIA REPAIR 2004 -LEFT 5TH FINGER AMPUTATION 1999 -BILATERAL ELBOW REPLACEMENTS 1998 AT -CATARACT SURGERY 1997 -LUMBAR LAMINECTOMY 1997 -LAPAROSCOPIC BILATERAL INGUINAL HERNIA REPAIRS 1992 -LEFT WRIST FUSION 1990 Physical Exam Vital Signs Vital Signs - First Documented 09/17/22 13:37 Temp 36.6 Pulse 55 Resp 18 B/P (MAP) 132/64 (86) Pulse Ox 98 O2 Delivery Room Air Capillary Refill : Less Than 3 Seconds Height, Weight, BMI Height: 6'0" Weight: 220lbs. oz. 99.618078nw; 290.00 BMI Method:Stated General Appearance: No Apparent Distress, WD/WN HEENT: PERRL/EOMI, Normal ENT Inspection Neck: Normal Inspection; No JVD Respiratory: Lungs Clear, Normal Breath Sounds, No Accessory Muscle Use, No Respiratory Distress, Other (Chest tender to palpation around the lower left anterior costal margin) Cardiovascular: Regular Rate, Rhythm, No Edema, No Murmur Gastrointestinal: Normal Bowel Sounds, Soft; No Distended; Tenderness (Generalized, mild) Extremity: Normal Inspection, Non Tender, No Calf Tenderness, No Pedal Edema Neurologic/Psychiatric: Alert, Oriented x3, No Motor/Sensory Deficits, Normal Mood/Affect Skin: Normal Color, Warm/Dry Progress/Results/Core Measures Results/Orders Lab Results Laboratory Tests Test 09/17/22 13:40 09/17/22 16:18 09/17/22 16:55 Range/Units White Blood Count 8.2 4.3-11.0 10^3/uL Red Blood Count 3.84 L 4.30-5.52 10^6/uL Hemoglobin 11.1 L 13.3-17.7 g/dL Hematocrit 35 L 40-54 % Mean Corpuscular Volume 90 80-99 fL Mean Corpuscular Hemoglobin 29 25-34 pg Mean Corpuscular Hemoglobin Concent 32 32-36 g/dL Red Cell Distribution Width 13.5 10.0-14.5 % Platelet Count 287 130-400 10^3/uL Mean Platelet Volume 10.0 9.0-12.2 fL Immature Granulocyte % (Auto) 0 % Neutrophils (%) (Auto) 65 42-75 % Lymphocytes (%) (Auto) 20 12-44 % Monocytes (%) (Auto) 13 H 0-12 % Eosinophils (%) (Auto) 2 0-10 % Basophils (%) (Auto) 1 0-10 % Neutrophils # (Auto) 5.3 1.8-7.8 10^3/uL Lymphocytes # (Auto) 1.6 1.0-4.0 10^3/uL Monocytes # (Auto) 1.0 0.0-1.0 10^3/uL Eosinophils # (Auto) 0.2 0.0-0.3 10^3/uL Basophils # (Auto) 0.1 0.0-0.1 10^3/uL Immature Granulocyte # (Auto) 0.0 0.0-0.1 10^3/uL Prothrombin Time 15.3 H 12.2-14.7 SEC INR Comment 1.2 0.8-1.4 Activated Partial Thromboplast Time 37 H 24-35 SEC Sodium Level 139 135-145 MMOL/L Potassium Level 4.8 3.6-5.0 MMOL/L Chloride Level 109 H 98-107 MMOL/L Carbon Dioxide Level 24 21-32 MMOL/L Anion Gap 6 5-14 MMOL/L Blood Urea Nitrogen 20 H 7-18 MG/DL Creatinine 0.92 0.60-1.30 MG/DL Estimat Glomerular Filtration Rate 83 BUN/Creatinine Ratio 22 Glucose Level 113 H 70-105 MG/DL Calcium Level 9.9 8.5-10.1 MG/DL Corrected Calcium 10.4 H 8.5-10.1 MG/DL Magnesium Level 2.1 1.6-2.4 MG/DL Total Bilirubin 0.4 0.1-1.0 MG/DL Aspartate Amino Transf (AST/SGOT) 23 5-34 U/L Alanine Aminotransferase (ALT/SGPT) 25 0-55 U/L Alkaline Phosphatase 117 40-136 U/L Myoglobin 46.3 10.0-92.0 NG/ML Troponin I < 0.028 < 0.028 <0.028 NG/ML C-Reactive Protein High Sensitivity 3.63 H 0.00-0.50 MG/DL Total Protein 6.5 6.4-8.2 GM/DL Albumin 3.4 3.2-4.5 GM/DL Lipase 11 8-78 U/L Urine Color YELLOW Urine Clarity CLEAR Urine pH 7.0 5-9 Urine Specific [place] 1.010 L 1.016-1.022 Urine Protein NEGATIVE NEGATIVE Urine Glucose (UA) NEGATIVE NEGATIVE Urine Ketones NEGATIVE NEGATIVE Urine Nitrite NEGATIVE NEGATIVE Urine Bilirubin NEGATIVE NEGATIVE Urine Urobilinogen 1.0 < = 1.0 MG/DL Urine Leukocyte Esterase NEGATIVE NEGATIVE Urine RBC (Auto) NEGATIVE NEGATIVE Urine RBC RARE /HPF Urine WBC NONE /HPF Urine Squamous Epithelial Cells RARE /HPF Urine Crystals NONE /LPF Urine Bacteria NEGATIVE /HPF Urine Casts PRESENT /LPF Urine Hyaline Casts RARE /LPF Urine Mucus NEGATIVE /LPF Urine Culture Indicated NO My Orders Orders - NIK SANDOVAL MD Cbc With Automated Diff (09/17/22 13:46) Magnesium (09/17/22 13:46) Chest 1 View, Ap/Pa Only (09/17/22 13:46) Comprehensive Metabolic Panel (09/17/22 13:46) Myoglobin Serum (09/17/22 13:46) Protime With Inr (09/17/22 13:46) Partial Thromboplastin Time (09/17/22 13:46) O2 (09/17/22 13:46) Monitor-Rhythm Ecg Trace Only (09/17/22 13:46) Ed Iv/Invasive Line Start (09/17/22 13:46) Troponin I [place] (09/17/22 13:46) Hs C Reactive Protein (09/17/22 13:55) Lipase (09/17/22 13:55) Ua Culture If Indicated (09/17/22 13:55) Troponin I [place] (09/17/22 16:30) Ns Iv 1000 Ml (Sodium Chloride 0.9%) (09/17/22 15:15) Vital Signs/I&O 09/17/22 09/17/22 13:37 18:17 Temp 36.6 Pulse 55 50 Resp 18 B/P (MAP) 132/64 (86) 181/82 Pulse Ox 98 100 O2 Delivery Room Air Blood Pressure Mean: 86 Progress Progress Note : Progress Note Patient was interviewed and examined. Chest pain panel was obtained. All labs were reviewed and interpreted by me. Troponin and repeat troponin 4 hours after last episode of pain were both negative. There were no significant abnormalities in the CBC or CMP. Magnesium was normal. No acute findings were appreciated on the radiologist chest x-ray report. Patient had no episodes of chest pain during his ER visit. The abdominal pain resolved without any treatment or interventions. Ultimately, patient was discharged in stable and improved condition. I recommended addressing constipation as discussed below in discharge instructions. Patient does have nitroglycerin at home but has not used it for chest pain. He was encouraged to use Tylenol for the chest wall pain that is tender to palpation. For other chest pain, he may use nitroglycerin as directed with return precautions. See discharge instructions for further discussion. Initial ECG Impression Date: Sep 17, 2022 Initial ECG Impression Time: 13:44 Initial ECG Rate: 53 Initial ECG Rhythm: S.Zachary Comment Sinus bradycardia with no ST elevation or depression. No significant abnormal intervals. Left axis deviation. Nonischemic EKG. Diagnostic Imaging Diagonstic Imaging: Xray Plain Films/CT/US/NM/MRI: chest Comments NAME: SABRA LARA REC#: [id number] PT STATUS: REG ER : 1940 PHYSICIAN: NIK SANDOVAL MD ADMIT DATE: 09/17/22/ER Signed Date of Exam:09/17/22 CHEST 1 VIEW, AP/PA ONLY EXAMINATION: Chest radiograph, portable AP view. DATE: 09/17/2022 2:12 PM INDICATION: 82-year-old male, chest pain. COMPARISON: March 03, 2022. FINDINGS: Heart size and mediastinal contours are unchanged. There is no identified pneumothorax. There is no large pleural effusion. There are streaky opacities in the left lung base which are unchanged. IMPRESSION: 1. No interval identified acute cardiopulmonary abnormality. Dictated by: Dictated on workstation # [id number] Dict: 09/17/22 1421 Trans: 09/17/22 1440 [facility] [id number] Interpreted by: JANET FLETCHER MD Electronically signed by: JANET FLETCHER MD 09/17/22 1440 Departure Impression Primary Impression: Chest pain Qualified Codes: R07.9 - Chest pain, unspecified Additional Impressions: Costochondritis Generalized abdominal pain Constipation Qualified Codes: K59.00 - Constipation, unspecified Sinus bradycardia Disposition: 01 HOME, SELF-CARE Condition: Improved Departure-Patient Inst. Decision time for Depature: 17:47 Referrals: CLEMENTE BAEZ MD (PCP/Family) Primary Care Physician Patient Instructions: Chest Pain, Constipation in adults, Costochondritis Add. Discharge Instructions: Drink plenty of water to stay well-hydrated. For your constipation you may use MiraLAX (or generic polyethylene glycol). Start with once a day or once every other day. You could also try Colace stool softener. Eat a diet high in fiber with plenty of fruits, vegetables, and whole grains. Avoid excessive meats, cheeses, processed foods, and fast foods. If your chest pain seems to be associated with soreness in the ribs, try taking Tylenol (acetaminophen) up to 1000 mg every 6 hours as needed. You could also try topical treatments such as lidocaine patches or rubs. For chest pain that does not seem to involve tenderness of the ribs or chest wall, consider using your nitroglycerin as prescribed. You may dissolve 1 tablet under your tongue every 5 minutes as needed. If your chest pain does not resolve within 5 minutes of the third tablet, return immediately to the emergency room. Notify Dr. Garza if you find your self needing to take nitroglycerin. Your heart rate has been a bit slow today around 50 to 55 bpm. Please discuss this with Dr. Garza. Otherwise continue all of your medications as previously prescribed. Follow-up with Dr. Baez and Dr. Garza by phone on Monday to arrange follow-up appointments. Return to the emergency room if you have worsening symptoms despite following these instructions. All discharge instructions reviewed with patient and/or family. Voiced understanding. Copy Copies To 1: CLEMENTE BAEZ MD Copies To 2: HELGA GARZA MD, JOSHUA T MD Sep 17, 2022 15:07
[2022-09-17] MEDS ORDERED: NS IV 1000 ML 1,000 ML IV SCH (15:15)
[2022-09-17 16:31] LABS: BILIRUBIN,URINE NEGATIVE (NEGATIVE); CLARITY,URINE CLEAR; COLOR,URINE YELLOW; GLUCOSE, URINE (UA) NEGATIVE (NEGATIVE); KETONES,URINE NEGATIVE (NEGATIVE); LEUKOCYTE ESTERASE ,URINE NEGATIVE (NEGATIVE); NITRITE,URINE NEGATIVE (NEGATIVE); PROTEIN,URINE NEGATIVE (NEGATIVE)
[2022-09-17 16:42] LABS: BACTERIA,URINE NEGATIVE /HPF; HYALINE CASTS, URINE RARE /LPF; RBC,URINE RARE /HPF; SQUAMOUS EPITHELIAL CELL,UR RARE /HPF
[2022-09-17 18:17] VITALS: BP 181/82
== END 2022-09-17 18:20 | disposition home or self-care (01) ==
LOC: EDUNIT# 13:33 → ER 13:35
DX: M94.0 Chondrocostal junction syndrome [Tietze] (principal); K59.00 Constipation, unspecified; R00.1 Bradycardia, unspecified; R10.84 Generalized abdominal pain; I48.91 Unspecified atrial fibrillation; G47.30 Sleep apnea, unspecified; F17.210 Nicotine dependence, cigarettes, uncomplicated; Z99.89 Dependence on other enabling machines and devices; Z79.02 Long term (current) use of antithrombotics/antiplatelets
CPT/HCPCS: 36415; 71045; 80053; 81000; 83690; 83735; 83874; 84484; 85025; 85610; 85730; 86141; 93005; 93041

== ENCOUNTER 2022-10-11 12:11 | Outpatient (RCR) | payer MEDICARE ==
[~2022-10-11] VITALS: Ht 182 cm; Wt 96.0 kg
[2022-10-11] MEDS ORDERED: FERRIC CARBOXYMALTOSE INJ 750 MG in NS (IVPB) 250 ML 250 ML IV SCH (12:45)
[2022-10-11 14:00] VITALS: BP 126/57
[2022-10-11] MEDS ORDERED: AMLO-250 PO (15:06)
[2022-10-11] MEDS ORDERED: ATOR10TA PO (15:06)
== END 2022-10-31 | disposition home or self-care (01) ==
LOC: SDC 12:11
PROVIDERS: ATTEND Physician Assistant
DX: D64.9 Anemia, unspecified (principal)
CPT/HCPCS: 96365

== ENCOUNTER → 2022-11-08 | Outpatient (CLI) | payer MEDICARE ==
[~2022-11-08] MED LIST changes: +AMLO-250 PO
--- NOTE | 2022-11-09 15:27 | Diagnostic Imaging Report ---
INDICATION: Abnormal thyroid function studies. TECHNIQUE: Patient was given 196 uCi of I-123 orally, and a 4-hour and 24-hour thyroid uptake was performed. In addition, thyroid scan was performed. FINDINGS: The 4-hour and 24-hour thyroid uptake is approximately 1%. Normal values are 10-30%. No activity is seen within the right or left lobes of the thyroid on the thyroid scan. IMPRESSION: Very low thyroid uptake of 1% consistent with hypothyroidism. Dictated by: Dictated on workstation # [id number]
== END ==
LOC: CARD 11:23
PROVIDERS: ATTEND Nurse Practitioner Family
DX: R94.6 Abnormal results of thyroid function studies (principal)
CPT/HCPCS: 78014; A9516

== ENCOUNTER 2022-11-16 10:03 | Outpatient (RCR) | payer MEDICARE ==
[~2022-11-16] VITALS: Ht 182 cm; Wt 96.0 kg
[2022-11-16] MEDS ORDERED: FERRIC CARBOXYMALTOSE INJ 750 MG in NS (IVPB) 250 ML 250 ML IV ONE (10:30)
[2022-11-16 10:35] VITALS: BP 140/68
== END 2022-12-01 | disposition home or self-care (01) ==
LOC: SDC 10:03
PROVIDERS: ATTEND Physician Assistant
DX: D64.9 Anemia, unspecified (principal)
CPT/HCPCS: 96365

== ENCOUNTER → 2022-12-01 | Outpatient (RCR) | payer MEDICARE | END | disposition home or self-care (01) | LOC: ONC 11-07 12:17 | PROVIDERS: ATTEND Internal Medicine Hematology & Oncology | DX: C49.9 Malignant neoplasm of connective and soft tissue, unspecified (principal); I25.10 Atherosclerotic heart disease of native coronary artery without angina pectoris; I11.9 Hypertensive heart disease without heart failure; E78.2 Mixed hyperlipidemia; E66.9 Obesity, unspecified | CPT/HCPCS: 77300; 77301; 77334; 77336; 77338; 77386; 99205; 99214 ==

== ENCOUNTER → 2022-12-09 | Outpatient (CLI) | payer MEDICARE ==
[~2022-12-09] MED LIST changes: +HOLD METFORMIN - RECEIVED CONTRAST 20 ML VIAL IV SCH; +IOHEXOL 350 MG/ML 100 ML (OMNIPAQUE 350) VIAL IV ONE; +NS 100 ML (IVPB) BAG IV ONE
--- NOTE | 2022-12-09 11:28 | Diagnostic Imaging Report ---
PROCEDURE: CT chest with contrast only. TECHNIQUE: Multiple contiguous axial images were obtained through the chest after administration of intravenous contrast. Auto Exposure Controls were utilized during the CT exam to meet ALARA standards for radiation dose reduction. INDICATION: Malignant neoplasm of soft tissue. COMPARISON: 09/09/2022 The lungs are clear without evidence of mass or infiltrate. There is no significant pleural fluid. There is mild pericardial fluid which is slightly increased when compared to previous study. No pathologically enlarged adenopathy is seen within the thorax. There is apparent joint effusion and synovial thickening at the right sternoclavicular joint. Images below the diaphragm reveal cholelithiasis. Note is also made of significant coronary artery calcification. IMPRESSION: No evidence of acute abnormality or metastatic disease in the chest although there is apparent inflammation and synovial fluid at the right sternoclavicular joint and clinical correlation is recommended. Other incidental findings include coronary artery calcification, mild pericardial fluid and cholelithiasis. Dictated on workstation # [id number]
== END ==
LOC: RAD 09:20
PROVIDERS: ATTEND Internal Medicine Hematology & Oncology
DX: C49.9 Malignant neoplasm of connective and soft tissue, unspecified (principal)
CPT/HCPCS: 71260

== ENCOUNTER → 2022-12-09 | Outpatient (CLI) | payer MEDICARE ==
[2022-12-09 09:50] LABS: CREATININE SERUM 0.78 MG/DL (0.60-1.30)
--- NOTE | 2022-12-09 13:34 | Diagnostic Imaging Report ---
PROCEDURE: US Thyroid. TECHNIQUE: Multiple real-time grayscale images were obtained of the thyroid in various projections. INDICATION: Abnormal laboratory values. COMPARISON: 11/09/2022. FINDINGS: Both thyroid lobes demonstrate a heterogeneous background echotexture. There are no focal lesions seen. Color flow Doppler demonstrates normal and symmetric vascularity bilaterally. The right lobe measures 4.8 cm in length, 1.9 cm AP, and 1.3 cm transverse. The left lobe measures 4.2 cm in length, 1.3 cm AP, and 1.7 cm transverse. The isthmus measures 1.0 cm. IMPRESSION: 1. Heterogeneous echogenicity of the thyroid which is nonspecific. No focal nodules are identified. Dictated by: Dictated on workstation # [id number]
== END ==
LOC: RAD 08:40
PROVIDERS: ATTEND Family Medicine
DX: E07.89 Other specified disorders of thyroid (principal); E05.90 Thyrotoxicosis, unspecified without thyrotoxic crisis or storm; C49.9 Malignant neoplasm of connective and soft tissue, unspecified
CPT/HCPCS: 36415; 71260; 76536; 82565; 84520

== ENCOUNTER 2023-01-04 08:28 | Outpatient (RCR) | payer MEDICARE ==
[~2023-01-04 08:28] MED LIST changes: -HOLD METFORMIN - RECEIVED CONTRAST 20 ML VIAL IV SCH; -IOHEXOL 350 MG/ML 100 ML (OMNIPAQUE 350) VIAL IV ONE; -NS 100 ML (IVPB) BAG IV ONE
== END 2023-01-31 | disposition home or self-care (01) ==
LOC: ONC 08:28
PROVIDERS: ATTEND Internal Medicine Hematology & Oncology
DX: Z51.0 Encounter for antineoplastic radiation therapy (principal); C49.9 Malignant neoplasm of connective and soft tissue, unspecified; I25.10 Atherosclerotic heart disease of native coronary artery without angina pectoris; I11.9 Hypertensive heart disease without heart failure; E78.2 Mixed hyperlipidemia; E66.9 Obesity, unspecified
CPT/HCPCS: 77336; 77386

== ENCOUNTER 2023-02-09 09:52 | Outpatient (RCR) | payer MEDICARE | END 2023-03-02 | disposition home or self-care (01) | LOC: ONC 09:52 | PROVIDERS: ATTEND Internal Medicine Hematology & Oncology | DX: C49.9 Malignant neoplasm of connective and soft tissue, unspecified (principal); I25.10 Atherosclerotic heart disease of native coronary artery without angina pectoris; I11.9 Hypertensive heart disease without heart failure; E78.2 Mixed hyperlipidemia; E66.9 Obesity, unspecified | CPT/HCPCS: 99213 ==

== ENCOUNTER → 2023-02-27 | Outpatient (CLI) | payer MEDICARE ==
[~2023-02-27] MED LIST changes: +HOLD METFORMIN - RECEIVED CONTRAST 20 ML VIAL IV SCH; +IOHEXOL 350 MG/ML 100 ML (OMNIPAQUE 350) VIAL IV ONE; +NS 100 ML (IVPB) BAG IV ONE
[2023-02-27 09:16] LABS: CREATININE SERUM 0.89 MG/DL (0.60-1.30)
--- NOTE | 2023-02-27 12:36 | Diagnostic Imaging Report ---
PROCEDURE: CT chest with contrast only. TECHNIQUE: Multiple contiguous axial images were obtained through the chest after administration of intravenous contrast. Auto Exposure Controls were utilized during the CT exam to meet ALARA standards for radiation dose reduction. DATE: February 27, 2023. INDICATION: 82-year-old male, history of connective tissue neoplasm. Evaluation for metastatic disease. COMPARISON: CT chest December 09, 2022. FINDINGS: There is no identified pulmonary nodule or lung mass. There is no pneumothorax. There is no pleural effusion. There is very mild atelectasis in the left lower lobe. There is no otherwise noted focal airspace consolidation. The more central airways are patent. The heart is not enlarged. There is no pericardial effusion. There are coronary artery calcifications and additional areas of atherosclerotic disease. There is no identified abnormally enlarged mediastinal, hilar, or axillary lymph node meeting CT size criteria for adenopathy. There are benign cysts in the left lobe of the liver. There is cholelithiasis without evidence of acute cholecystitis. There is a benign right renal cyst on axial image 166. There are subcentimeter left renal lesions too small to characterize. There is mild renal atrophy bilaterally. There is no hydronephrosis. There is incompletely imaged mild gita mesenteric stranding. There is a superior endplate concavity of L1 with approximately 20% height loss. There no visible fracture line. This is unchanged since at least December 09, 2022. There is a sizable right sternoclavicular joint effusion. IMPRESSION: 1. No evidence of metastatic disease at the level of the chest. 2. Sizable right sternoclavicular joint effusion. Recommend correlation clinically, particularly for possibility of septic arthritis although septic arthritis is considered unlikely given lack of bone destruction and lack of interval progression since December 09, 2022. Dictated by: Dictated on workstation # [id number]
== END ==
LOC: RAD 08:49
PROVIDERS: ATTEND Internal Medicine Hematology & Oncology
DX: C49.9 Malignant neoplasm of connective and soft tissue, unspecified (principal); M25.48 Effusion, other site
CPT/HCPCS: 36415; 71260; 82565; 84520

== ENCOUNTER → 2023-03-01 | Outpatient (CLI) | payer MEDICARE ==
[~2023-03-01] MED LIST changes: -HOLD METFORMIN - RECEIVED CONTRAST 20 ML VIAL IV SCH; -IOHEXOL 350 MG/ML 100 ML (OMNIPAQUE 350) VIAL IV ONE; -NS 100 ML (IVPB) BAG IV ONE
--- NOTE | 2023-03-01 15:54 | Diagnostic Imaging Report ---
INDICATION: Postsurgical follow-up. COMPARISON: 12/21/2020. FINDINGS: Postsurgical changes of the right elbow are again identified. Distal humeral and proximal ulnar components appear appropriately aligned and well seated. Chronic gross deformities of the distal humerus and proximal radius and ulna are again identified. There is no new acute fracture. No unexpected radiopaque foreign bodies are seen. IMPRESSION: 1. Postoperative changes to the left elbow. No acute fracture. Dictated by: Dictated on workstation # [id number]
== END ==
LOC: ORTHO 09:12
PROVIDERS: ATTEND Orthopaedic Surgery
DX: M25.522 Pain in left elbow (principal); Z98.890 Other specified postprocedural states
CPT/HCPCS: 73080; G0463; 99203